=== PATIENT | male | born 1965 | race Caucasian/White ===

== ENCOUNTER → 2017-05-24 | Outpatient (CLI) | payer BC ==
[~2017-05-24] MED LIST: HYCUDL5 PO; NAPR1TAB9 PO
[2017-05-24 12:18] LABS: BASO % 0.8 %; BASO ABS # 0.06 K/uL (0-0.2); COMPLETE YES; EOS % 1.7 %; HEMATOCRIT 45.9 % (42-52); IG% 0.8 %; LYMPH % 21.3 %; LYMPH ABS # 1.53 K/uL (1.2-3.4); MEAN CELL VOLUME 97.5 fL (80-100); MEAN CORPUSCULAR HEMOGLOBIN 32.5 pg (25-34); MEAN CORPUSCULAR HGB CONC 33.3 g/dl (32-36); MEAN PLATELET VOLUME 9.4 fL (7.4-10.4); NEUT % 65.4 %; PLATELET COUNT 254 K/uL (130-400); RED BLOOD COUNT 4.71 M/uL (4.7-6.1); WHITE BLOOD COUNT 7.17 K/uL (4.8-10.8)
[2017-05-24 12:36] LABS: BLOOD UREA NITROGEN 15 mg/dl (7-18); CALCIUM 8.6 mg/dl (8.5-10.1); CARBON DIOXIDE 29 mmol/L (21-32); CHLORIDE 106 mmol/L (98-107); CHOLESTEROL 129 mg/dl (0-200); CREATININE 1.03 mg/dl (0.60-1.40); GLUCOSE 105 mg/dl (70-99); POTASSIUM 3.9 mmol/L (3.5-5.1); SODIUM 140 mmol/L (136-145); TRIGLYCERIDES 61 mg/dl (0-150); VERY LOW DENSITY LIPOPROT CALC 12 mg/dl
[2017-05-24 12:39] LABS: ESTIMATED AVERAGE GLUCOSE 134 mg/dl; HA1C FLAG Normal (Normal)
[2017-05-24 12:47] LABS: ALB/GLOB RATIO 1.3 (0.9-2); ALKALINE PHOSPHATASE 68 U/L (45-117); ALT/SGPT 38 U/L (12-78); AST/SGOT 20 U/L (15-37); HDL CHOLESTEROL 64 mg/dl; LDL CHOLESTEROL CALCULATED 53 mg/dl; THYROID STIMULATING HORMONE 0.525 uIu/ml (0.300-4.500)
[2017-05-24 12:50] LABS: CREATININE RANDOM URINE 45.9 mg/dl
[2017-05-24 13:01] LABS: RATIO 15.7 mcg/mg (0-30.0)
== END | disposition home or self-care (01) ==
LOC: C.LABBFT 07:34
PROVIDERS: ATTEND Physician Assistant Medical
DX: I10 Essential (primary) hypertension (principal); Z12.5 Encounter for screening for malignant neoplasm of prostate

== ENCOUNTER → 2017-08-22 | Outpatient (CLI) | payer BC ==
--- NOTE | 2017-08-22 07:51 | DIAGNOSTIC IMAGING REPORT ---
ABDOMEN FOR HERNIA CLINICAL HISTORY: Umbilical hernia. COMPARISON STUDY: No previous studies for comparison. FINDINGS: Note is made of a fat-containing umbilical hernia which is incompletely reducible. IMPRESSION: Incompletely reducible fat-containing umbilical hernia. Electronically signed by: Jaylon Peguero M.D. 08/22/2017 7:49 AM Dictated Date/Time: 08/22/2017 7:47 AM
== END | disposition home or self-care (01) ==
LOC: C.ULTR 07:30
PROVIDERS: ATTEND Physician Assistant Medical
DX: K42.9 Umbilical hernia without obstruction or gangrene (principal)

== ENCOUNTER → 2017-09-18 | Day surgery (SDC) | payer BC ==
[2017-09-11 08:08] VITALS: BMI 36.0
--- NOTE | 2017-09-11 08:38 | PAT Medication Instructions ---
Service Date Sep 11, 2017. Current Home Medication List Losartan Potassium (Cozaar), 50 MG PO QAM [Triamcinolone 1%], 1 DOSE TOP PRN Medication Instructions For Your Scheduled Surgery - Hold the following medications 24 hours prior to surgery: [Triamcinolone 1%], 1 DOSE TOP PRN - Hold the following medications the morning of surgery: Losartan Potassium (Cozaar), 50 MG PO QAM If you have any questions please call us at [phone] or [phone] or [phone]
--- NOTE | 2017-09-11 09:04 | DIAGNOSTIC IMAGING REPORT ---
CHEST 2 VIEWS ROUTINE CLINICAL HISTORY: 51 years-old Male presenting with preoperative examination. TECHNIQUE: PA and lateral views of the chest were obtained. COMPARISON: 03/23/2015. FINDINGS: Cardiomediastinal silhouette normal. Lungs and pleural spaces clear. Degenerative changes of the thoracic spine. Upper abdomen normal. IMPRESSION: 1. No acute cardiopulmonary disease. Electronically signed by: Korey Burton M.D. 09/11/2017 9:03 AM Dictated Date/Time: 09/11/2017 9:02 AM
[2017-09-11 11:20] LABS: BASO % 0.5 %; BASO ABS # 0.04 K/uL (0-0.2); EOS % 1.3 %; HEMATOCRIT 44.1 % (42-52); HEMOGLOBIN 14.9 g/dL (14.0-18.0); IG# 0.12 K/uL (0.00-0.02); LYMPH ABS # 1.56 K/uL (1.2-3.4); MEAN CELL VOLUME 96.1 fL (80-100); MEAN CORPUSCULAR HEMOGLOBIN 32.5 pg (25-34); MEAN CORPUSCULAR HGB CONC 33.8 g/dl (32-36); MEAN PLATELET VOLUME 8.8 fL (7.4-10.4); MONO % 7.9 %; MONO ABS # 0.59 K/uL (0.11-0.59); NEUT % 67.7 %; NEUT ABS # 5.02 K/uL (1.4-6.5); PLATELET COUNT 235 K/uL (130-400); RED CELL DISTRIBUTION WIDTH SD 49.3 fL (36.4-46.3); WHITE BLOOD COUNT 7.43 K/uL (4.8-10.8)
[2017-09-11 11:28] LABS: CALCIUM 8.8 mg/dl (8.5-10.1); CREATININE 0.91 mg/dl (0.60-1.40); POTASSIUM 4.4 mmol/L (3.5-5.1)
[~2017-09-18] VITALS: Ht 177.8 cm; Wt 115.9 kg
[~2017-09-18] MED LIST changes: +ATROPINE SULFATE 0.1 MG/ML 5ML SYR IV PRN; +BUPIVACAINE 0.5 % 5 MG/1 ML MPF 30ML VIAL ONE; +CEFAZOLIN 2000MG IV PUSH 15 ML IV SCH; +CLINDAMYCIN 600 MG/54 ML D5W IV SCH; +DEXAMETHASONE SOD INJ 4 MG/ML VIAL ONE; +EpHEDrine SULFATE INJ 50 MG/ML AMP IV PRN; +FENTANYL CITRATE INJ 50 MCG/1 ML 2 ML VIAL IV PRN; +FENTANYL CITRATE INJ 50 MCG/1 ML 2 ML VIAL ONE; +FLUMAZENIL 0.1 MG/1 ML 10 ML VIAL IV PRN; +GLYCOPYRROLATE INJ 0.2 MG/ML VIAL ONE; -HYCUDL5 PO; +LABETALOL HCL IV 5 MG/ML 20ML IV ONE; +LABETALOL HCL IV 5 MG/ML 20ML IV PRN; +LACTATED RINGER'S 1000ML 1,000 ML IV SCH; +LIDOCAINE HCL 2% 2 ML VIAL (20MG/ML) ONE; +LOSA50TA6 PO; +MEPERIDINE HCL 25 MG/ML CARP IV PRN; +MIDAZOLAM HCL 1 MG/ML 2ML VIAL ONE; +MoRPHine SULFATE 2 MG/ML CARP IV PRN; +NALOXONE HCL 0.4 MG/1 ML VIAL/CARP IV PRN; -NAPR1TAB9 PO; +NEOSTIGMINE METHYLSULFATE 5 MG/5 ML SYR ONE; +NURSING VERBAL MED ORDER ONE; +ONDANSETRON INJ 2 MG/ML 2 ML VIAL IV PRN; +ONDANSETRON INJ 2 MG/ML 2 ML VIAL ONE; +OXYC-57 PO; +OXYCODONE/ACETAMINOPHEN 5-325 TAB PO PRN; +PHENYLEPHRINE 100MCG/ML 5ML SYR IV PRN; +PROPOFOL IV EMULSION 10 MG/ML 20 ML VIAL IV ONE; +ROCURONIUM BROMIDE 10 MG/ML 5 ML VIAL IV ONE; +TRIAMCINOLONE 1% TOP
[2017-09-18 07:00] VITALS: BP 166/97; PULSE 56; TEMP 36.4; O2SAT 98; Ht 177.8 cm; Wt 115.9 kg
--- NOTE | 2017-09-18 07:04 | History & Physical Bridge Note ---
H&P Re-Evaluation Bridge Note: I have examined the patient, reviewed the History & Physical and in the interval since the performance of the History & Physical I have noted the following changes of clinical significance: No changes noted
--- NOTE | 2017-09-18 08:08 | Discharge Instructions ---
Discharge Instructions Date of Service Sep 18, 2017. Visit Reason for Visit: Umbilical Hernia Discharge Discharge Diagnosis / Problem: hernia repair Discharge Goals Goal(s): Decrease discomfort Activity Recommendations Activity Limitations: resume your previous activity Lifting Limitations: no more than 10 pounds Shower/Bathe: no limitations Driving or Machine Use: resume 3 days after discharge Anesthesia . Post Anesthesia Instructions: If you have had General Anesthesia or IV Sedation: * Do not drive today. * Resume driving when surgeon permits. * Do not make important decisions or sign legal documents today. * Call surgeon for: 1. Temperature elevations greater than 101 degrees F. 2. Uncontrollable pain. 3. Excessive bleeding. 4. Persistent nausea and vomiting. 5. Medication intolerance (nausea, vomiting or rash). * For nausea and vomiting use only clear liquids such as: tea, soda, bouillon until nausea subsides, then gradually increase diet as tolerated. * If you have any concerns or questions, call your surgeon's office. If physician is unavailable and it is an emergency, call 911 or go to the nearest emergency room. . Instructions / Follow-Up Instructions / Follow-Up Dr. Marquez in 1-2 weeks as planned, call [phone] if you have any questions or need to schedule an appt Diet Recommendations Recommended Home Diet: no limitations Pending Studies Studies pending at discharge: no Medical Emergencies . Who to Call and When: Medical Emergencies: If at any time you feel your situation is an emergency, please call 911 immediately. . Non-Emergent Contact Non-Emergency issues call your: Surgeon Call Non-Emergent contact if: you have a fever, temperature is above 101.5, your pain is not controlled, wound has increased redness, you have any medication questions . . "Provider Documentation" section prepared by Alejo Kate. .
--- NOTE | 2017-09-18 09:12 | [facility] Post Operative Brief Note ---
Immediate Operative Summary Operative Date Sep 18, 2017. Pre-Operative Diagnosis Umbilical Hernia Post-Operative Diagnosis Same as preop Procedure(s) Performed Open Umbilical Hernia Repair with Mesh Surgeon Dr. Marquez Dry Cell Assembly Machine Tender Surgeon(s) Alejo Kate PA-C Estimated Blood Loss 2 ml Findings Consistent with Post-Op Diagnosis 1.5 cm defect, small Cqur mesh placed Specimens None per Surgeon Drains None Anesthesia Type General Complication(s) none Disposition Accompanied Pt To Recover: no Disposition: Recovery Room / PACU
--- NOTE | 2017-09-18 09:16 | [facility] Operative Report ---
Operative Report Operative Date Sep 18, 2017. Pre-Operative Diagnosis Umbilical Hernia Post-Operative Diagnosis Umbilical hernia, reducible Procedure(s) Performed Umbilical hernia repair with mesh Surgeon Dr. Marquez Exercise Science Instructor Surgeon(s) Alejo Kate PA-C Estimated Blood Loss 2 ml Findings 1.5 cm defect, 4.3 cm Cqur mesh sewn into place with interrupted 0 Nurolon suture Specimens None per Surgeon Drains None Anesthesia GETA Complication(s) None Disposition Recovery Room / PACU Indications 51-year-old morbidly obese male with symptomatic umbilical hernia, desires repair. Plan for open umbilical hernia repair. The risks of the procedure were discussed, all questions were answered, and the patient agreed to proceed with surgery as planned. Description of Procedure The patient was properly identified, consented, and taken to the operating room where he was placed in the supine position. General endotracheal anesthesia was induced. SCDs and a safety belt were placed. Preoperative antibiotics were administered. The patient's abdomen was prepped and draped in the standard sterile fashion. Surgical timeout was performed and all parties were in agreement that this was the correct patient and procedure to be performed and we continued as planned. A curvilinear infraumbilical incision was made and deepened down to the fascia with blunt dissection. The umbilical stalk was circumferentially dissected with a Jenna, and divided below the level of the skin. A 1.5 cm fascial defect was encountered. The hernia was reduced. The fascia anteriorly and posteriorly was cleared of investing tissue for several centimeters. Hemostasis was achieved within the wound. Due to the patient's obesity, a 4.3 cm piece of Cqur mesh was sown into place with interrupted 0 Nurolon sutures. The wound was irrigated and hemostasis confirmed. The umbilicus was tacked down to the fascia with 3-0 Vicryl sutures. Local anesthetic in the form of 0.5% Marcaine was injected in the fascia and along the skin incision. The skin was closed with interrupted 3-0 Vicryl deep dermal sutures, followed by 4-0 Monocryl running subcuticular suture. Dermabond was placed over the wound. The patient was extubated in the operating room and taken to the PACU where he recovered without apparent incident. All sponge, instrument and needle counts were correct at the conclusion of the procedure. The patient tolerated the procedure well. The physician's export sales assistant was present and scrubbed for the entirety of the case. He was essential in positioning the patient, prepping and draping, retraction and exposure, repair of the hernia, closure of the incision, and placement of the dressings. I attest to the content of the Intraoperative Record and any orders documented therein. Any exceptions are noted below.
--- NOTE | 2017-09-18 10:03 | Anesthesiology Progress Note ---
Anesthesia Post Op Note Date & Time Sep 18, 2017 at 10:03 Vital Signs Pain Intensity: 2 Vital Signs Past 12 Hours Date Time Temp Pulse Resp B/P (MAP) Pulse Ox O2 Delivery O2 Flow Rate FiO2 09/18/17 09:50 135/87 09/18/17 09:49 57 26 09/18/17 09:49 58 26 100 09/18/17 09:48 137/91 09/18/17 09:45 57 27 09/18/17 09:45 55 27 144/104 100 09/18/17 09:40 56 22 09/18/17 09:40 56 22 150/108 100 09/18/17 09:35 60 12 161/103 100 09/18/17 09:35 60 12 09/18/17 09:30 67 18 09/18/17 09:30 67 18 186/102 100 09/18/17 09:30 36.0 67 14 186/102 98 Oxymask 10 09/18/17 07:00 36.4 56 20 166/97 (120) 98 Room Air Notes Mental Status: alert / awake / arousable, participated in evaluation Pt Amnestic to Procedure: Yes Nausea / Vomiting: adequately controlled Pain: adequately controlled Airway Patency, RR, SpO2: stable & adequate BP & HR: stable & adequate Hydration State: stable & adequate Anesthetic Complications: no major complications apparent
[2017-09-18 10:14] VITALS: BP 142/86; PULSE 52; TEMP 36.5; O2SAT 92
[2017-09-18 10:44] VITALS: BP 157/96; PULSE 60; TEMP 36.5; O2SAT 95
== END | disposition home or self-care (01) ==
LOC: C.OR 06:40
PROVIDERS: ATTEND Surgery
DX: K42.9 Umbilical hernia without obstruction or gangrene (principal); E66.01 Morbid (severe) obesity due to excess calories; J45.909 Unspecified asthma, uncomplicated; I10 Essential (primary) hypertension; Z79.899 Other long term (current) drug therapy; Z88.0 Allergy status to penicillin; Z88.8 Allergy status to other drugs, medicaments and biological substances; Z88.5 Allergy status to narcotic agent

== ENCOUNTER → 2017-10-02 | Outpatient (CLI) | payer BC ==
[~2017-10-02] MED LIST changes: -ATROPINE SULFATE 0.1 MG/ML 5ML SYR IV PRN; -BUPIVACAINE 0.5 % 5 MG/1 ML MPF 30ML VIAL ONE; -CEFAZOLIN 2000MG IV PUSH 15 ML IV SCH; -CLINDAMYCIN 600 MG/54 ML D5W IV SCH; -DEXAMETHASONE SOD INJ 4 MG/ML VIAL ONE; -EpHEDrine SULFATE INJ 50 MG/ML AMP IV PRN; -FENTANYL CITRATE INJ 50 MCG/1 ML 2 ML VIAL IV PRN; -FENTANYL CITRATE INJ 50 MCG/1 ML 2 ML VIAL ONE; -FLUMAZENIL 0.1 MG/1 ML 10 ML VIAL IV PRN; -GLYCOPYRROLATE INJ 0.2 MG/ML VIAL ONE; -LABETALOL HCL IV 5 MG/ML 20ML IV ONE; -LABETALOL HCL IV 5 MG/ML 20ML IV PRN; -LACTATED RINGER'S 1000ML 1,000 ML IV SCH; -LIDOCAINE HCL 2% 2 ML VIAL (20MG/ML) ONE; -MEPERIDINE HCL 25 MG/ML CARP IV PRN; -MIDAZOLAM HCL 1 MG/ML 2ML VIAL ONE; -MoRPHine SULFATE 2 MG/ML CARP IV PRN; -NALOXONE HCL 0.4 MG/1 ML VIAL/CARP IV PRN; -NEOSTIGMINE METHYLSULFATE 5 MG/5 ML SYR ONE; -NURSING VERBAL MED ORDER ONE; -ONDANSETRON INJ 2 MG/ML 2 ML VIAL IV PRN; -ONDANSETRON INJ 2 MG/ML 2 ML VIAL ONE; -OXYCODONE/ACETAMINOPHEN 5-325 TAB PO PRN; -PHENYLEPHRINE 100MCG/ML 5ML SYR IV PRN; -PROPOFOL IV EMULSION 10 MG/ML 20 ML VIAL IV ONE; -ROCURONIUM BROMIDE 10 MG/ML 5 ML VIAL IV ONE
[2017-10-02 12:29] LABS: BLOOD UREA NITROGEN 17 mg/dl (7-18); CARBON DIOXIDE 29 mmol/L (21-32); CREATININE 1.08 mg/dl (0.60-1.40); GLUCOSE 99 mg/dl (70-99); POTASSIUM 4.1 mmol/L (3.5-5.1); SODIUM 139 mmol/L (136-145)
== END | disposition home or self-care (01) ==
LOC: C.LABBFT 07:20
PROVIDERS: ATTEND Physician Assistant Medical
DX: I10 Essential (primary) hypertension (principal)

== ENCOUNTER 2018-01-27 10:36 | Emergency (ER) | payer BC ==
[~2018-01-27] VITALS: Ht 177.8 cm; Wt 111.9 kg
[2018-01-27 10:44] VITALS: TEMP 36.5; Ht 177.8 cm; Wt 111.9 kg
[2018-01-27] MEDS ORDERED: KETOROLAC TROMETHAMINE 30 MG/ML VIAL IV STA (11:10)
[2018-01-27] MEDS ORDERED: ACETAMINOPHEN 325 MG TAB PO STA (11:10)
--- NOTE | 2018-01-27 11:17 | EMERGENCY ROOM VISIT NOTE ---
History Report prepared by Ashley: Chance Akers Under the Supervision of: Dr. Ramez Thao M.D. First contact with patient: 10:59 Chief Complaint: RIB PAIN Stated Complaint: RIB AREA HARD TO TAKE DEEP BREATH History of Present Illness The patient is a 52 year old male who presents to the Emergency Room with complaints of left-sided pain with breathing in the area of his ribs worsening since today. He states that he moved his left arm today and noticed something shifting, and since has been experiencing pain only when he breathes. He notes that he has been taking Tylenol for pain. The patient notes that he was lying on the floor and moved his left arm 4 months ago and also felt something shift. 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 He notes a history of a superficial clot in his leg that did not require treatment. He denies nausea, vomiting, sweating, or coughing. He denies smoking. Source of History: patient Onset: today Position: other (area of the left ribs) Timing: worsening Modifying Factors (Worsening): breathing Associated Symptoms: No diaphoresis, No cough, No nausea, No vomiting Review of Systems See HPI for pertinent positives and negatives. A total of ten systems were reviewed and were otherwise negative. Past Medical & Surgical Medical Problems: (1) Asthma (2) Hypertension (3) Varicose vein Family History Hypertension Social History Smoking Status: Never Smoker Smokeless Tobacco Use: Yes Alcohol Use: occasionally Drug Use: none Marital Status: single Housing Status: lives alone Occupation Status: employed Current/Historical Medications Scheduled Hctz/Losartan (Hyzaar 12.5MG/50MG), 1 TAB PO DAILY Allergies Coded Allergies: Homatropine (Verified Allergy, Unknown, SYRUP-MENTAL CONFUSION, 01/27/18) Hydrocodone (Verified Allergy, Unknown, SYRUP-MENTAL CONFUSION, 01/27/18) Penicillins (Verified Allergy, Unknown, as a child, 01/27/18) Physical Exam Vital Signs Date Time Temp Pulse Resp B/P (MAP) Pulse Ox O2 Delivery O2 Flow Rate FiO2 01/27/18 12:05 72 01/27/18 12:05 67 18 132/72 95 Room Air 01/27/18 11:32 96 Room Air 01/27/18 10:44 36.5 92 18 132/83 95 Room Air Physical Exam GENERAL: Awake, alert, obese-appearing, NAD. Wearing glasses. HENT: Normocephalic, atraumatic. EYES: Normal conjunctiva. Sclera non-icteric. PERRL. No anisocoria. NECK: Supple. No nuchal rigidity. FROM. RESPIRATORY: CTAB, no rhonchi, wheezing, crackles CARDIAC: RRR, no MRG ABDOMEN: Soft, NTND, BS+ MSK: Reproducible left anterior chest wall pain and TTP, no overlying changes, no crepitus. 1+ b/l lower extremity edema, no asymmetry. Wears compression stockings. NEURO: GCS 15, CN 2-12 intact, moves all 4s on command SKIN: No rashes noted over left chest. No jaundice noted. Medical Decision & Procedures ER Provider Diagnostic Interpretation: Radiology results as stated below per my review and radiologist interpretation: CHEST 2 VIEWS ROUTINE HISTORY: 52 years-old Male L sided anterior CP acute left-sided atypical chest pain COMPARISON: Chest radiograph 09/11/2017 TECHNIQUE: PA and lateral views of the chest FINDINGS: Cardiac silhouette is upper limits of normal in size. No pneumothorax, pleural effusion, focal airspace consolidation or overt pulmonary edema. Bones of the chest appear grossly intact. Spondylitic spurring of the spine. Mild tortuosity about the descending thoracic aorta. IMPRESSION: No acute process. The above report was generated using voice recognition software. It may contain grammatical, syntax or spelling errors. Electronically signed by: Portillo oCnner M.D. 01/27/2018 12:02 PM Laboratory Results 01/27/18 11:30 Red Blood Count 4.72, Mean Corpuscular Volume 97.2, Mean Corpuscular Hemoglobin 32.2, Mean Corpuscular Hemoglobin Concent 33.1, Mean Platelet Volume 8.7, Neutrophils (%) (Auto) 76.1, Lymphocytes (%) (Auto) 13.4, Monocytes (%) (Auto) 7.8, Eosinophils (%) (Auto) 1.1, Basophils (%) (Auto) 0.4, Neutrophils # (Auto) 6.86, Lymphocytes # (Auto) 1.21, Monocytes # (Auto) 0.70, Eosinophils # (Auto) 0.10, Basophils # (Auto) 0.04 8/20/18 11:30 Test 01/27/18 11:30 White Blood Count 9.02 K/uL (4.8-10.8) Red Blood Count 4.72 M/uL (4.7-6.1) Hemoglobin 15.2 g/dL (14.0-18.0) Hematocrit 45.9 % (42-52) Mean Corpuscular Volume 97.2 fL (80-100) Mean Corpuscular Hemoglobin 32.2 pg (25-34) Mean Corpuscular Hemoglobin Concent 33.1 g/dl (32-36) Platelet Count 251 K/uL (130-400) Mean Platelet Volume 8.7 fL (7.4-10.4) Neutrophils (%) (Auto) 76.1 % Lymphocytes (%) (Auto) 13.4 % Monocytes (%) (Auto) 7.8 % Eosinophils (%) (Auto) 1.1 % Basophils (%) (Auto) 0.4 % Neutrophils # (Auto) 6.86 K/uL (1.4-6.5) Lymphocytes # (Auto) 1.21 K/uL (1.2-3.4) Monocytes # (Auto) 0.70 K/uL (0.11-0.59) Eosinophils # (Auto) 0.10 K/uL (0-0.5) Basophils # (Auto) 0.04 K/uL (0-0.2) RDW Standard Deviation 47.4 fL (36.4-46.3) RDW Coefficient of Variation 13.3 % (11.5-14.5) Immature Granulocyte % (Auto) 1.2 % Immature Granulocyte # (Auto) 0.11 K/uL (0.00-0.02) Anion Gap 9.0 mmol/L (3-11) Est Creatinine Clear Calc Drug Dose 115.1 ml/min Estimated GFR () 108.2 Estimated GFR (Non- 93.4 BUN/Creatinine Ratio 18.0 (10-20) Calcium Level 8.7 mg/dl (8.5-10.1) Total Bilirubin 0.4 mg/dl (0.2-1) Direct Bilirubin 0.1 mg/dl (0-0.2) Aspartate Amino Transf (AST/SGOT) 25 U/L (15-37) Alanine Aminotransferase (ALT/SGPT) 44 U/L (12-78) Alkaline Phosphatase 89 U/L (45-117) Troponin I < 0.015 ng/ml (0-0.045) Total Protein 6.9 gm/dl (6.4-8.2) Albumin 3.7 gm/dl (3.4-5.0) Lipase 163 U/L (73-393) Laboratory results reviewed by me Medications Administered Medications (Trade) Dose Ordered Sig/Jalen Route Start Time Stop Time Status Last Admin Dose Admin Ketorolac Tromethamine (Toradol Inj) 30 mg NOW STAT IV 01/27/18 11:10 01/27/18 11:11 DC 01/27/18 11:36 30 MG Acetaminophen (Tylenol Tab) 650 mg NOW STAT PO 01/27/18 11:10 01/27/18 11:11 DC 01/27/18 11:36 650 MG ECG Per My Interpretation Indication: chest pain Rate (beats per minute): 77 Rhythm: normal sinus Findings: left axis deviation, other (Normal intervals. No STS changes or TWI.) ED Course 1103: The patient was evaluated in room C4. A complete history and physical exam was performed. 1226: I reevaluated the patient, who states he is feeling a little better. Discussed results and discharge instructions: He verbalized understanding and agreement. The patient is ready for discharge. Medical Decision Nursing notes reviewed. Ancillary studies and prior records reviewed. The patient is a 52 year old male who presents to the Emergency Room with complaints of worsening left-sided pain with breathing in the area of his ribs beginning today. Differential diagnosis: Etiologies such as costochondritis, MSK pain, cardiac ischemia, aortic dissection, pulmonary embolism, pneumonia, pneumothorax, musculoskeletal, infections, pericarditis, myocarditis, esophageal rupture, gastrointestinal, as well as others were entertained. Patient was seen and evaluated the bedside. The patient was complaining some left-sided anterior reproducible chest wall pain. Patient does describe it is somewhat pleuritic. The patient does report having similar symptoms 4 months prior after he had changed out to switch controller. 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 The patient is right-handed. The patient denies any other acute trauma to the area. The patient does have some reproducible chest wall tenderness no evidence of any overlying erythema crepitus or rash. The patient is not tachypneic nor tachycardic. The patient is also not hypoxic. Patient did have blood work completed along with an EKG and troponin. Patient's EKG does not show acute arrhythmia. Troponin is not elevated. Patient's history and physical exam along with nonischemic EKG and negative troponin less likely ACS. HEART score of 2, less likely ACS. The patient does feel improved after treatment. Patient states that he did have a history of superficial venous thrombosis which did not require anticoagulant medication this was found on a prior MRI of the lower extremities. The patient has negative Homans sign and no asymmetry of the bilateral lower extremities less likely DVT. The patient has a well's PE criteria of 0. Patient was given strict follow-up, discharge, and return precautions. All questions were answered. Patient was deemed suitable for outpatient follow-up at this time. Patient agreed with the plan of care and was safely discharged home. Medication Reconcilliation Current Medication List: was personally reviewed by me Blood Pressure Screening Patient's blood pressure: Normal blood pressure Blood pressure disposition: Did not require urgent referral Impression Primary Impression: Costochondritis, acute Scribe Attestation The scribe's documentation has been prepared under my direction and personally reviewed by me in its entirety. I confirm that the note above accurately reflects all work, treatment, procedures, and medical decision making performed by me. Departure Information Dispostion Home / Self-Care Referrals Melody Wilson P.A. (PCP) Forms HOME CARE DOCUMENTATION FORM, IMPORTANT VISIT INFORMATION, WORK / SCHOOL INSTRUCTIONS Patient Instructions My [facility] Additional Instructions Please return to the emergency department if you have worsening or recurrent symptoms not amenable to at-home treatment. Please call for a follow-up appointment with her primary care physician. Please take your medications as prescribed. If you have other concerns and/or complaints please feel free to also call your primary care physician's office or return the ED for further evaluation, management, and treatment. You may take 400 mg Ibuprofen every 6 hours as needed for pain/fever with food unless told by your physician not to take NSAIDs. You may take tylenol 650 mg every 6 hours as needed for pain/fever unless told by your physician to not take it or have liver problems. You may take motrin and tylenol separately or at the same time. You may apply moist heat and/or ice to the area. You may consider topicals such as BenGay, Biofreeze, or icy hot. If you do have persistent symptoms you may consider obtaining a referral for physical therapy. Take your medications as prescribed. You have been examined and treated today on an emergency basis only. This is not a substitute for, or an effort to provide, complete comprehensive medical care. It is impossible to recognize and treat all injuries or illnesses in a single emergency department visit. It is therefore important that you follow up closely with [facility], your PCP, and/or your specialist(s). Call as soon as possible for an appointment. Thank you for your time and consideration. I look forward to speaking with you again soon. Please don't hesitate to call us if you have any questions.
[2018-01-27 11:32] VITALS: O2SAT 96
[2018-01-27 11:40] LABS: BASO % 0.4 %; BASO ABS # 0.04 K/uL (0-0.2); EOS % 1.1 %; HEMATOCRIT 45.9 % (42-52); HEMOGLOBIN 15.2 g/dL (14.0-18.0); IG# 0.11 K/uL (0.00-0.02); LYMPH % 13.4 %; LYMPH ABS # 1.21 K/uL (1.2-3.4); MEAN CELL VOLUME 97.2 fL (80-100); MEAN CORPUSCULAR HEMOGLOBIN 32.2 pg (25-34); MEAN CORPUSCULAR HGB CONC 33.1 g/dl (32-36); MEAN PLATELET VOLUME 8.7 fL (7.4-10.4); MONO % 7.8 %; NEUT % 76.1 %; NEUT ABS # 6.86 K/uL (1.4-6.5); PLATELET COUNT 251 K/uL (130-400); RED CELL DISTRIBUTION WIDTH CV 13.3 % (11.5-14.5); RED CELL DISTRIBUTION WIDTH SD 47.4 fL (36.4-46.3); WHITE BLOOD COUNT 9.02 K/uL (4.8-10.8)
[2018-01-27 12:01] LABS: ALBUMIN 3.7 gm/dl (3.4-5.0); ALKALINE PHOSPHATASE 89 U/L (45-117); ALT/SGPT 44 U/L (12-78); AST/SGOT 25 U/L (15-37); BLOOD UREA NITROGEN 17 mg/dl (7-18); CALCIUM 8.7 mg/dl (8.5-10.1); CARBON DIOXIDE 26 mmol/L (21-32); CREATININE 0.93 mg/dl (0.60-1.40); GLUCOSE 106 mg/dl (70-99); LIPASE 163 U/L (73-393); SODIUM 143 mmol/L (136-145); TOTAL PROTEIN 6.9 gm/dl (6.4-8.2)
--- NOTE | 2018-01-27 12:04 | DIAGNOSTIC IMAGING REPORT ---
CHEST 2 VIEWS ROUTINE HISTORY: 52 years-old Male L sided anterior CP acute left-sided atypical chest pain COMPARISON: Chest radiograph 09/11/2017 TECHNIQUE: PA and lateral views of the chest FINDINGS: Cardiac silhouette is upper limits of normal in size. No pneumothorax, pleural effusion, focal airspace consolidation or overt pulmonary edema. Bones of the chest appear grossly intact. Spondylitic spurring of the spine. Mild tortuosity about the descending thoracic aorta. IMPRESSION: No acute process. The above report was generated using voice recognition software. It may contain grammatical, syntax or spelling errors. Electronically signed by: Portillo Conner M.D. 01/27/2018 12:02 PM Dictated Date/Time: 01/27/2018 12:00 PM
[2018-01-27 12:05] VITALS: BP 132/72; PULSE 67; O2SAT 95
[2018-01-27] MEDS ORDERED: HYZ/50125 PO (12:06)
== END 2018-01-27 12:30 | disposition home or self-care (01) ==
LOC: C.EDB 10:37 → C.EDC 12:30
DX: M94.0 Chondrocostal junction syndrome [Tietze] (principal); J45.909 Unspecified asthma, uncomplicated; I10 Essential (primary) hypertension; Z88.8 Allergy status to other drugs, medicaments and biological substances; Z88.0 Allergy status to penicillin

== ENCOUNTER 2021-01-03 08:50 | Inpatient (IN) ==
[2021-01-03] MEDS ORDERED: KETOROLAC TROMETHAMINE 15 MG/ML VIAL IV ONE (08:59)
--- NOTE | 2021-01-03 09:02 | Emergency Department Note ---
Impression & Plan Chest pain, Pulmonary embolism, Elevated troponin ED Provider Note NAME: LUCY CASTRO AGE: 55 SEX: M : 1965 ARRIVES VIA: Ambulance INFORMANT: Patient ED PROVIDER(S): Chris Small DO CHIEF COMPLAINT: chest pain HPI: Patient is a 55-year-old male with a past medical history of hypertension and diabetes as well as obesity that presents the ER for exertional chest pain and shortness of breath which has been present for the past 3 days. He notes it improves with rest. He has no pain right now. He went to the wound care clinic and he was having chest pain and was diaphoretic per report. He was given aspirin. His pain has resolved. Denies any belly pain nausea vomiting or diarrhea. No dysuria urgency or frequency. He has been taking his NOAC and has not missed any doses until he stopped taking it about 3 weeks ago per instructions from his physician. He notes he had a small clot in his lower leg. ROS: See above HPI for pertinent positives & negatives. A total of 10 systems reviewed and were otherwise negative. PAST MEDICAL HISTORY:See Below PAST SURGICAL HISTORY:See Below FAMILY HISTORY:See Below SOCIAL HISTORY:See Below HOME MEDICATIONS:See Below ALLERGIES:See Below VITALS:See Below PHYSICAL EXAMINATION: GENERAL: Sitting up in bed, alert, well appearing, well nourished, no distress, non-toxic EYE EXAM: normal conjunctiva. OROPHARYNX: mucous membranes are moist NECK: supple, no nuchal rigidity, no adenopathy, non-tender CHEST: No reproducible anterior chest wall pain LUNGS: Clear to auscultation. Normal chest wall mechanics HEART: no murmurs, S1 normal and S2 normal ABDOMEN: abdomen soft, non-tender, normo-active bowel sounds, no masses, no rebound or guarding. UPPER EXTREMITIES: upper extremities are grossly normal. LOWER EXTREMITIES: No pitting edema. NEURO EXAM: Normal sensorium, cranial nerves II-XII grossly intact, normal speech, no gross weakness of arms, no gross weakness of legs. MEDICAL DECISION MAKING: Patient is a 55-year-old gentleman the presents the ER for chest pain which is exertional in nature associated with shortness of breath. He was sent in from the wound care clinic. IV was established blood work was obtained. Labs show no significant leukocytosis or anemia. BMP was unremarkable. LFTs bilirubin was normal. Troponin was elevated 0.136. Lipase was normal. Covid was negative. Chest x-ray was unremarkable. No STEMI on EKG. No acute ischemic changes. Follow the result of the elevated troponin to discussed with Nestor Ramachandran from cardiology. I did have concern that this gentleman may have a PE and he is a fairly poor historian. After reviewing the case recommended CT angio we both agreed the patient should be placed on heparin. He was given a bolus of heparin and placed on heparin drip after discussion with the patient at bedside as he had no bleeding risk factors. CT angio did show PEs. There was no obvious right heart strain on CT angio. This was discussed again with Dr. Herbert. Recommended discussion with the hospitalist for further evaluation I discussed with Dr. Josemanuel Gomez for further work-up. Dr. Herbert will likely obtain an echo per discussion. Triage Nursing notes reviewed. Limited review of prior medical records performed Vital Signs: reviewed and remarkable for no significant abnormalities Differential diagnosis: Differential diagnoses includes but is not limited to acute coronary syndrome, myocardial infarction, pericarditis, pulmonary embolus, aortic dissection, pneumonia, pneumothorax, musculoskeletal, shingles, esophageal. ER treatment provided: See below Diagnostics interpreted by me: ECG: Sinus rhythm rate of 93 Left axis No PVCs QTC 415 Cardiac Monitoring: An order was placed for continuous cardiac monitoring. The monitor shows a rate of 92 with sinus rhythm. Laboratory studies: As stated above and show below. 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 This includes bedside care, interpretation of diagnostic studies, and testing, discussion with consultants, patient, and family members, and other required patient management activities. This 42 minutes is in excess of all separately billable procedures. 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 Edema of both lower extremities History of blood clots SUPERFICIAL CLOT IN LEFT LEG (~2015) History of fractured rib Hypertension Thrombophlebitis of leg, superficial Varicose vein Venous stasis ulcer Surgical History H/O vein stripping History of herniorrhaphy UMBILICAL HERNIA REPAIR History of tonsillectomy Hx of removal of cyst FROM BACK Family History Other Family history non-contributory Social History Smoking Status: Never smoker Second Hand Exposure: No; Do You Dip or Chew Tobacco: No; Hx Alcohol Use: No Hx Substance Use: No Preferred Language: Indonesian Communication Ability: Effective Elevated Motorman Required: No Beliefs That Will Affect Care: None Current Living Situation: Spouse Other Information That Helps Us Care for You: No Feels Safe at Home: Yes Safety Concerns: Feels Safe At This Time Assistive Devices: Glasses Allergies Allergies Allergy/AdvReac Type Severity Reaction Status Date / Time homatropine Allergy Intermediate SYRUP-MENTAL Verified 01/03/21 10:37 CONFUSION hydrocodone Allergy Intermediate SYRUP-MENTAL Verified 01/03/21 10:37 CONFUSION Penicillins Allergy Unknown as a child Verified 01/03/21 10:37 Home Meds Home Medications Medication Instructions Recorded Confirmed albuterol sulfate 90 mcg/actuation 2 puffs INH 6XD PRN 01/03/21 01/03/21 aerosol inhaler (Ventolin HFA) furosemide 20 mg tablet (Lasix) 20 mg PO QAM 01/03/21 01/03/21 losartan 100 mg tablet (Cozaar) 100 mg PO QAM 01/03/21 01/03/21 metoprolol succinate 25 mg 25 mg PO QAM 01/03/21 01/03/21 tablet,extended release 24 hr (Toprol XL) sulfamethoxazole 800 1 tab PO BID 01/03/21 01/03/21 mg-trimethoprim 160 mg tablet (Bactrim DS) Previous Rx's Medication Instructions Recorded metformin 500 mg tablet 500 mg PO BID #60 tab 10/03/20 Results & Data (ED) Vital Signs Vital Signs - 24 hr 01/03/21 08:57 01/03/21 09:00 01/03/21 09:30 Temperature 36.5 C Temperature Source Oral Pulse Rate 98 H 102 H 91 H Pulse Rate [Finger] Pulse Rate from SpO2 Sensor 91 H Respiratory Rate 24 27 H 22 Respiratory Effort / Characteristics Non-Labored Spontaneous Respiratory Depth Normal Respiratory Pattern Blood Pressure 124/88 114/79 105/74 Blood Pressure [Right Arm] Blood Pressure Mean 100 90 84 Blood Pressure Mean [Right Arm] Blood Pressure Position Sitting Pulse Oximetry 95 95 Oxygen Delivery Method Room Air Sepsis Recent Fever Within 48 Hours No Sepsis New/Unexplained Change in Mental Status N/A Sepsis Action Taken by Nursing No Action Required 01/03/21 10:00 01/03/21 10:31 01/03/21 11:03 Temperature Temperature Source Pulse Rate 87 119 H 80 Pulse Rate [Finger] Pulse Rate from SpO2 Sensor 87 78 Respiratory Rate 23 15 21 Respiratory Effort / Characteristics Respiratory Depth Respiratory Pattern Blood Pressure 104/74 115/77 Blood Pressure [Right Arm] Blood Pressure Mean 84 89 Blood Pressure Mean [Right Arm] Blood Pressure Position Pulse Oximetry 95 95 Oxygen Delivery Method Sepsis Recent Fever Within 48 Hours Sepsis New/Unexplained Change in Mental Status Sepsis Action Taken by Nursing 01/03/21 11:30 01/03/21 12:00 01/03/21 13:28 Temperature Temperature Source Pulse Rate 77 78 Pulse Rate [Finger] 77 Pulse Rate from SpO2 Sensor 77 78 Respiratory Rate 19 19 20 Respiratory Effort / Characteristics Non-Labored Spontaneous Respiratory Depth Normal Respiratory Pattern Blood Pressure 112/78 114/93 Blood Pressure [Right Arm] 117/77 Blood Pressure Mean 89 100 Blood Pressure Mean [Right Arm] 90 Blood Pressure Position Pulse Oximetry 94 95 97 Oxygen Delivery Method Room Air Sepsis Recent Fever Within 48 Hours Sepsis New/Unexplained Change in Mental Status Sepsis Action Taken by Nursing 01/03/21 13:32 Temperature Temperature Source Pulse Rate Pulse Rate [Finger] 74 Pulse Rate from SpO2 Sensor Respiratory Rate 16 Respiratory Effort / Characteristics Non-Labored Respiratory Depth Normal Respiratory Pattern Regular Blood Pressure Blood Pressure [Right Arm] 120/81 Blood Pressure Mean Blood Pressure Mean [Right Arm] 94 Blood Pressure Position Pulse Oximetry 96 Oxygen Delivery Method Room Air Sepsis Recent Fever Within 48 Hours Sepsis New/Unexplained Change in Mental Status Sepsis Action Taken by Nursing Laboratory Data Result diagrams: 01/03/21 Unknown 01/03/21 Unknown Lab Results 01/03/21 01/03/21 01/03/21 Range/Units 10:05 10:05 Unknown WBC 10.21 (4.8-10.8) K/uL RBC 4.64 L (4.7-6.1) M/uL Hgb 14.8 (14.0-18.0) g/dL Hct 44.7 (42-52) % MCV 96.3 (80-100) fL MCH 31.9 (25-34) pg MCHC 33.1 (32-36) g/dL RDW Std Deviation 51.2 H (36.4-46.3) fL RDW Coeff of Beth 14.5 (11.5-14.5) % Plt Count 223 (130-400) K/uL MPV 8.9 (7.4-10.4) fL Immature Gran % (Auto) 2.6 % Neut % (Auto) 78.5 % Lymph % (Auto) 10.1 % Garrett % (Auto) 5.3 % Eos % (Auto) 3.2 % Baso % (Auto) 0.3 % Neut # (Auto) 8.01 H (1.4-6.5) K/uL Lymph # (Auto) 1.03 L (1.2-3.4) K/uL Garrett # (Auto) 0.54 (0.11-0.59) K/uL Eos # (Auto) 0.33 (0-0.5) K/uL Baso # (Auto) 0.03 (0-0.2) K/uL Immature Gran # (Auto) 0.27 H (0.00-0.02) K/uL APTT (21.0-31.0) Seconds PTT Ratio Sodium (136-145) mmol/L Potassium (3.5-5.1) mmol/L Chloride (98-107) mmol/L Carbon Dioxide (21-32) mmol/L Anion Gap (3-11) BUN (7-18) mg/dl Creatinine (0.6-1.4) mg/dl Est Cr Clr Drug Dosing Est GFR ( Amer) ml/min Est GFR (Non-Af Amer) ml/min BUN/Creatinine Ratio (10-20) Glucose (70-99) mg/dl Calcium (8.5-10.1) mg/dl Total Bilirubin (0.2-1) mg/dl AST (15-37) U/L ALT (12-78) U/L Alkaline Phosphatase (45-117) U/L Troponin I (0-0.045) ng/ml Total Protein (6.4-8.2) gm/dl Albumin (3.4-5.0) gm/dl Globulin (2.5-4.0) gm/dl Albumin/Globulin Ratio (0.9-2) Lipase (73-393) U/L COVID-19 Eval Order Covid19 at [facility] SARS-CoV-2 (PCR) NEGATIVE (Negative) 01/03/21 01/03/21 Range/Units Unknown Unknown WBC (4.8-10.8) K/uL RBC (4.7-6.1) M/uL Hgb (14.0-18.0) g/dL Hct (42-52) % MCV (80-100) fL MCH (25-34) pg MCHC (32-36) g/dL RDW Std Deviation (36.4-46.3) fL RDW Coeff of Beth (11.5-14.5) % Plt Count (130-400) K/uL MPV (7.4-10.4) fL Immature Gran % (Auto) % Neut % (Auto) % Lymph % (Auto) % Garrett % (Auto) % Eos % (Auto) % Baso % (Auto) % Neut # (Auto) (1.4-6.5) K/uL Lymph # (Auto) (1.2-3.4) K/uL Garrett # (Auto) (0.11-0.59) K/uL Eos # (Auto) (0-0.5) K/uL Baso # (Auto) (0-0.2) K/uL Immature Gran # (Auto) (0.00-0.02) K/uL APTT 22.8 (21.0-31.0) Seconds PTT Ratio 0.9 Sodium 137 (136-145) mmol/L Potassium 4.2 (3.5-5.1) mmol/L Chloride 106 (98-107) mmol/L Carbon Dioxide 24 (21-32) mmol/L Anion Gap 7.0 (3-11) BUN 15 (7-18) mg/dl Creatinine 1.10 (0.6-1.4) mg/dl Est Cr Clr Drug Dosing Not Reportable Est GFR ( Amer) 86.5 ml/min Est GFR (Non-Af Amer) 74.6 ml/min BUN/Creatinine Ratio 13.5 (10-20) Glucose 149 H (70-99) mg/dl Calcium 8.1 L (8.5-10.1) mg/dl Total Bilirubin 0.4 (0.2-1) mg/dl AST 18 (15-37) U/L ALT 55 (12-78) U/L Alkaline Phosphatase 80 (45-117) U/L Troponin I 0.136 H* (0-0.045) ng/ml Total Protein 6.7 (6.4-8.2) gm/dl Albumin 3.1 L (3.4-5.0) gm/dl Globulin 3.6 (2.5-4.0) gm/dl Albumin/Globulin Ratio 0.9 (0.9-2) Lipase 192 (73-393) U/L COVID-19 Eval Order SARS-CoV-2 (PCR) (Negative) Administered Medications Heparin Sodium/Dextrose (Heparin Sodium/Dextrose) 25,000 units in 500 mls @ 20 mls/hr IV .Q24H CHRISTINE; Protocol Stop: 02/02/21 10:59 Last Admin: 01/03/21 11:26 Dose: 1,000 units/hr, 20 mls/hr Documented by: [id number] Cosigned by: [id number] Discontinued Medications Aspirin (Aspirin 81 Mg Chew) 324 mg PO NOW STA Stop: 01/03/21 13:08 Last Admin: 01/03/21 13:29 Dose: 324 mg Documented by: [id number] Heparin Sodium (Porcine) (Heparin Sod (Porcine) 1000 Unit/Ml) 1 units IV NOW ONE Stop: 01/03/21 11:01 Last Admin: 01/03/21 11:26 Dose: 4,000 units Documented by: [id number] Cosigned by: [id number] Heparin Sodium/Dextrose (Heparin Iv Adult Wt-Based Low-Dose With Bolus Protocol) 1 ea N/A NOW STA; Protocol Stop: 01/03/21 10:46 Last Admin: 01/03/21 11:51 Dose: Not Given Documented by: [id number] Ioversol (Optiray 320 125ml) 120 ml IV ONCE ONE Stop: 01/03/21 11:00 Last Admin: 01/03/21 11:01 Dose: 120 ml Documented by: [id number] Ketorolac Tromethamine (Ketorolac Tromethamine 15 Mg/Ml Vial) 15 mg IV NOW ONE Stop: 01/03/21 09:00 Last Admin: 01/03/21 09:10 Dose: 15 mg Documented by: [id number] Imaging Data Radiologist's Impression: Chest X-Ray 01/03/21 09:00 XR chest 1V portable HISTORY: 55 years-old Male Chest Pain acute atypical chest pain COMPARISON: Chest radiograph 07/14/2020, chest CT 07/27/2018, chest radiograph 01/27/2018. TECHNIQUE: Portable AP view of the chest FINDINGS: Cardiac silhouette is enlarged. Nodular opacity of the right infrahilar distribution is redemonstrated which appears to correlate with pulmonary vasculature on comparison studies. No pneumothorax, pleural effusion, airspace consolidation or overt pulmonary edema. Degenerative changes of the shoulders and spine. IMPRESSION: Cardiomegaly without acute process. ACT 112: Negative or not required by law. The above report was generated using voice recognition software. It may contain grammatical, syntax or spelling errors. Electronically signed by: Armando Conner M.D. 01/03/2021 9:14 AM Chest CTA 01/03/21 10:45 CT ANGIOGRAM OF THE CHEST CLINICAL HISTORY: PE COMPARISON STUDY: July 27, 2018 TECHNIQUE: Following the IV administration of 120 mL of Optiray, CT angiogram of the thorax was performed from the thoracic inlet to the lung bases utilizing the pulmonary embolus protocol. Images are reviewed in the axial, sagittal, and coronal planes. IV contrast was administered without complication. MIP imaging was performed. A dose lowering technique was utilized adhering to the principles of ALARA. CT DOSE: 703.68 mGy.cm FINDINGS: There is adequate opacification within main pulmonary artery. Acute pulmonary emboli are seen within left upper lobe pulmonary artery branch. Main pulmonary artery is within upper limits of normal. No evidence of right heart strain seen. Mild four-chamber cardiomegaly is seen with trace pericardial effusion. No significant coronary calcification demonstrated. There is no axillary, supra clavicle or internal mammary lymphadenopathy seen. Few nonenlarged mediastinal and subcarinal lymph nodes are seen . There are few slightly prominent right hilar pulmonary nodules measuring up to 1.3 cm in short axis (4/168) There was no evidence of thoracic aortic dilatation. Tracheobronchial tree is patent. This study is acquired during partial ex piratory phase is slightly limits due to motion artifact. There is mild atelectasis and scarring at dependent portions of bilateral lower lobes. Evaluation of pulmonary parenchyma is limited due to severe motion artifact. Trace pleural effusion is seen on the right. Limited evaluation of upper abdominal viscera shows hepatic steatosis and nodularity of the right adrenal gland and no acute intra-abdominal process. Osseous structures: Multilevel degenerative changes of the spine. IMPRESSION: 1. Study is positive for pulmonary embolus within right upper lobe pulmonary artery branches. No evidence of right heart strain is seen. Findings will be report to emergency Department. 2. Cardiomegaly. Trace pericardial effusion. 3. Hepatic steatosis. 4. Trace right pleural effusion with atelectasis at dependent portions of bilateral lower lobes. 5. Limited exam due to respiratory motion artifact. 6. Additional findings as above. ACT 112: Negative or not required by law. The above report was generated using voice recognition software. It may contain grammatical, syntax or spelling errors. Electronically signed by: Angeline Raza DO 01/03/2021 11:22 AM Discharge Plan Visit Data Chief Complaint: Chest Pain Stated Complaint: CHEST PAIN ED Provider: Chris Small Discharge Problem: Chest pain, Pulmonary embolism, Elevated troponin Forms Stand Alone Forms: [facility] Prescriptions Prescriptions: No Action metformin 500 mg tablet 500 mg PO BID Qty: 60 RF: 5 sulfamethoxazole-trimethoprim [Bactrim DS] 800-160 mg tablet 1 tab PO BID RF: 0 furosemide [Lasix] 20 mg tablet 20 mg PO QAM RF: 0 metoprolol succinate [Toprol XL] 25 mg tablet extended release 24 hr 25 mg PO QAM RF: 0 albuterol sulfate [Ventolin HFA] 90 mcg/actuation HFA aerosol inhaler 2 puffs INH 6XD PRN (Reason: shortness of breath or wheezing) RF: 0 losartan [Cozaar] 100 mg tablet 100 mg PO QAM RF: 0 Referrals Referrals: Nhan Laureano III, MD [Primary Care Provider] - Discharge Problem: Chest pain Qualifiers: Chest pain type: unspecified Qualified Code(s): R07.9 - Chest pain, unspecified Pulmonary embolism Qualifiers: Pulmonary embolism type: unspecified Chronicity: unspecified Acute cor pulmonale presence: unspecified Qualified Code(s): I26.99 - Other pulmonary embolism without acute cor pulmonale
--- NOTE | 2021-01-03 09:15 | XRay Report ---
XR chest 1V portable HISTORY: 55 years-old Male Chest Pain acute atypical chest pain COMPARISON: Chest radiograph 07/14/2020, chest CT 07/27/2018, chest radiograph 01/27/2018. TECHNIQUE: Portable AP view of the chest FINDINGS: Cardiac silhouette is enlarged. Nodular opacity of the right infrahilar distribution is redemonstrate d which appears to correlate with pulmonary vasculature on comparison studies. No pneumothorax, pleur al effusion, airspace consolidation or overt pulmonary edema. Degenerative changes of the shoulders a nd spine. IMPRESSION: Cardiomegaly without acute process. ACT 112: Negative or not required by law. The above report was generated using voice recognition software. It may contain grammatical, syntax o r spelling errors. Electronically signed by: Armando Conner M.D. 01/03/2021 9:14 AM
[2021-01-03 09:24] LABS: Basophils # (auto) 0.03 K/uL (0-0.2); Basophils % (auto) 0.3 %; Eosinophils # (auto) 0.33 K/uL (0-0.5); Eosinophils % (auto) 3.2 %; Hematocrit (blood only) 44.7 % (42-52); Hemoglobin 14.8 g/dL (14.0-18.0); Immature Granulocytes # (auto) 0.27 K/uL (0.00-0.02); Immature Granulocytes % (auto) 2.6 %; Lymphocytes # (auto) 1.03 K/uL (1.2-3.4); Lymphocytes % (auto) 10.1 %; Mean Corpuscular Hemoglobin 31.9 pg (25-34); Mean Corpuscular Hgb Conc 33.1 g/dL (32-36); Mean Corpuscular Volume 96.3 fL (80-100); Mean Platelet Volume 8.9 fL (7.4-10.4); Monocytes # (auto) 0.54 K/uL (0.11-0.59); Monocytes % (auto) 5.3 %; Neutrophils # (auto) 8.01 K/uL (1.4-6.5); Neutrophils % (auto) 78.5 %; Platelet Count 223 K/uL (130-400); RDW Coefficient of Variation 14.5 % (11.5-14.5); RDW Standard Deviation 51.2 fL (36.4-46.3); Red Blood Count 4.64 M/uL (4.7-6.1); White Blood Count 10.21 K/uL (4.8-10.8)
[2021-01-03 09:31] LABS: Albumin Level 3.1 gm/dl (3.4-5.0); BUN Creatinine Ratio 13.5 (10-20); Blood Urea Nitrogen 15 mg/dl (7-18); Calcium 8.1 mg/dl (8.5-10.1); Carbon Dioxide 24 mmol/L (21-32); Chloride 106 mmol/L (98-107); Est GFR (African American) 86.5 ml/min; Est GFR (Non-African American) 74.6 ml/min; Glucose 149 mg/dl (70-99); Lipase 192 U/L (73-393); Potassium 4.2 mmol/L (3.5-5.1); Sodium 137 mmol/L (136-145)
[2021-01-03 09:35] LABS: Partial Thromboplastin Ratio 0.9; Partial Thromboplastin Time 22.8 Seconds (21.0-31.0)
[2021-01-03 09:57] LABS: Alanine Aminotransferase 55 U/L (12-78); Albumin Globulin Ratio 0.9 (0.9-2); Alkaline Phosphatase 80 U/L (45-117); Aspartate Aminotransferase 18 U/L (15-37); Bilirubin,Total 0.4 mg/dl (0.2-1); Globulin 3.6 gm/dl (2.5-4.0); Total Protein 6.7 gm/dl (6.4-8.2); Troponin I 0.136 ng/ml (0-0.045)
[2021-01-03] MEDS ORDERED: Heparin IV Adult Wt-Based Low-Dose WITH Bolus Protocol STA (10:45)
[2021-01-03] MEDS ORDERED: OPTIRAY 320 125ml IV ONE (10:59)
[2021-01-03] MEDS ORDERED: HEPARIN SOD (PORCINE) 1000 UNIT/ML IV ONE (11:00)
--- NOTE | 2021-01-03 11:24 | CT Scan Report ---
CT ANGIOGRAM OF THE CHEST CLINICAL HISTORY: PE COMPARISON STUDY: July 27, 2018 TECHNIQUE: Following the IV administration of 120 mL of Optiray, CT angiogram of the thorax was perfo rmed from the thoracic inlet to the lung bases utilizing the pulmonary embolus protocol. Images are r eviewed in the axial, sagittal, and coronal planes. IV contrast was administered without complication . MIP imaging was performed. A dose lowering technique was utilized adhering to the principles of AL LESLIE. CT DOSE: 703.68 mGy.cm FINDINGS: There is adequate opacification within main pulmonary artery. Acute pulmonary emboli are seen within left upper lobe pulmonary artery branch. Main pulmonary artery is within upper limits of normal. No evidence of right heart strain seen. Mild four-chamber cardiomegaly is seen with trace pericardial effusion. No significant coronary calci fication demonstrated. There is no axillary, supra clavicle or internal mammary lymphadenopathy seen. Few nonenlarged medias tinal and subcarinal lymph nodes are seen . There are few slightly prominent right hilar pulmonary nodules measuring up to 1.3 cm in short axis ( 4/168) There was no evidence of thoracic aortic dilatation. Tracheobronchial tree is patent. This study is acquired during partial expiratory phase is slightly l imits due to motion artifact. There is mild atelectasis and scarring at dependent portions of bilateral lower lobes. Evaluation of pulmonary parenchyma is limited due to severe motion artifact. Trace pleural effusion is seen on the right. Limited evaluation of upper abdominal viscera shows hepatic steatosis and nodularity of the right adr enal gland and no acute intra-abdominal process. Osseous structures: Multilevel degenerative changes of the spine. IMPRESSION: 1. Study is positive for pulmonary embolus within right upper lobe pulmonary artery branches. No arian dence of right heart strain is seen. Findings will be report to emergency Department. 2. Cardiomegaly. Trace pericardial effusion. 3. Hepatic steatosis. 4. Trace right pleural effusion with atelectasis at dependent portions of bilateral lower lobes. 5. Limited exam due to respiratory motion artifact. 6. Additional findings as above. ACT 112: Negative or not required by law. The above report was generated using voice recognition software. It may contain grammatical, syntax o r spelling errors. Electronically signed by: Angeline Raza DO 01/03/2021 11:22 AM
[2021-01-03] MEDS: HEPARIN SODIUM/DEXTROSE 25,000 UNITS/500 ML BAG IV SCH (11:26)
[2021-01-03] MEDS ORDERED: ASPIRIN 81 MG CHEW PO STA (13:07)
--- NOTE | 2021-01-03 13:23 | History & Physical Report ---
Date of Service January 03, 2021 Assessment & Plan (1) Pulmonary embolism: Plan: Noted on CTA chest on 01/03. No heart strain seen on CT, but troponin mildly elevated. - Heparin started in the ED - Continue for now - Echo & LE Dopplers ordered (2) Chest pain: Plan: With exertion; new since the weekend. Had been doing some lifting, so MSK also possible. Initial troponin was 0.13, and EKG without ischemic changes. No ongoing chest pain during my interview. - Trend troponins and EKGs - Heparin gtt started due to PE - Given ASA 324 mg PO once in the ED - Continue ASA 81 mg PO daily - Cardiology consulted ("dual" consult with Dr. Fields for vascular as well) -> Could consider cath vs. stress test vs. no further investigation depending on troponin curve. Defer to cardiology. (3) Venous stasis ulcer: Plan: Has been seeing Ree Laird for vein ablation and [facility] wound. No indication of infection on my exam on admission. - Vascular (Donnie) consulted as I'm unclear if venous ablation can lead to DVT - Dopplers ordered - Wound care consulted (4) Diabetes type 2, controlled: Plan: A1c was 6.4% in 10/2020. - Hold metformin - Sliding scale insulin (5) Hypertension: Plan: BP in the ED was 120/75. No indication of hypotension from the PE. - Continue home furosemide, losartan, and metoprolol XL. (6) Asthma: Plan: No present shortness of breath while at rest. No wheezing on exam. - Albuterol PRN History of Present Illness Chief Complaint: Chest pain Primary Care Provider: Nhan Laureano MD Very pleasant 55 yo M w/ hx of DM, HTN who presents for chest pain with exertion. He reports that starting about Saturday/Saturday, he noted some left substernal pressure with exertion that he had not noticed in the past. Previously, he was able to walk indefinitely, and with carrying something or more exertion, he would eventually slow down due to shortness of breath. 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 This was new for him. Otherwise, denied any other associated symptoms, and the pain generally went away quickly (minutes) with rest. On my exam, he not having any present chest pain while lying in bed. No other associated symptoms. He does have a history of DVTs, but has not had one in some years per my review of the notes. He has previously been on Eliquis without any bleeding issues, but it was stopped per him "3 weeks ago" though I don't see any notes to that effect. Allergies Allergy/AdvReac Type Severity Reaction Status Date / Time homatropine Allergy Intermediate SYRUP-MENTAL Verified 01/03/21 10:37 CONFUSION hydrocodone Allergy Intermediate SYRUP-MENTAL Verified 01/03/21 10:37 CONFUSION Penicillins Allergy Unknown as a child Verified 01/03/21 10:37 Home Medications Medication Instructions Recorded Confirmed Type metformin 500 mg tablet 500 mg PO BID #60 tab 10/03/20 01/03/21 Rx albuterol sulfate 90 mcg/actuation 2 puffs INH 6XD PRN 01/03/21 01/03/21 History aerosol inhaler (Ventolin HFA) furosemide 20 mg tablet (Lasix) 20 mg PO QAM 01/03/21 01/03/21 History losartan 100 mg tablet (Cozaar) 100 mg PO QAM 01/03/21 01/03/21 History metoprolol succinate 25 mg 25 mg PO QAM 01/03/21 01/03/21 History tablet,extended release 24 hr (Toprol XL) sulfamethoxazole 800 1 tab PO BID 01/03/21 01/03/21 History mg-trimethoprim 160 mg tablet (Bactrim DS) 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 Edema of both lower extremities History of blood clots SUPERFICIAL CLOT IN LEFT LEG (~2015) History of fractured rib Hypertension Thrombophlebitis of leg, superficial Varicose vein Venous stasis ulcer Surgical History H/O vein stripping History of herniorrhaphy UMBILICAL HERNIA REPAIR History of tonsillectomy Hx of removal of cyst FROM BACK Family History Other Family history non-contributory Social History Smoking Status: Never smoker Second Hand Exposure: No; Do You Dip or Chew Tobacco: No; Hx Alcohol Use: No Hx Substance Use: No Preferred Language: Polish Communication Ability: Effective Scrap Cutter Required: No Beliefs That Will Affect Care: None Current Living Situation: Spouse Other Information That Helps Us Care for You: No Feels Safe at Home: Yes Safety Concerns: Feels Safe At This Time Assistive Devices: Glasses Review of Systems Review of Systems: All systems reviewed & are unremarkable except as noted in HPI & below Physical Exam Constitutional: WD/WN, vitals as above Eyes: EOM intact bilaterally; no conjunctival abnormality ENMT: external ear and nose normal, oropharynx normal Neck: trachea midline, no thyromegaly normal visual inspection Respiratory: normal respiratory effort, lungs clear to auscultation no respiratory distress Cardiovascular: RRR, no murmur, no edema No swelling or erythema in legs. Gastrointestinal (Abdomen): Inspection/Auscultation: abdomen normal to inspection; abdomen not distended Musculoskeletal: no cyanosis or clubbing, extremities motor strength 5/5 Skin: no rashes, warm and dry + wound (Right lewis) Neurologic: moves all extremities and awake Psychiatric: Orientation: alert, oriented to person and cooperative Results & Data Results & Data ([facility]) Vital Signs (Past 12 Hours) Vital Signs Temp Pulse Resp BP Pulse Ox 01/03/21 10:31 119 H 15 115/77 01/03/21 10:00 87 23 104/74 95 01/03/21 09:30 91 H 22 105/74 95 01/03/21 09:00 102 H 27 H 114/79 01/03/21 08:57 36.5 C 98 H 24 124/88 95 Code Status & VTE Plan VTE Prophylaxis Plan VTE Prophylaxis will be ordered: Yes PG Care Time/CCT Total # of Minutes Spent Total Time Spent with Patient: Total time spent is greater than 50% in coordination of care (as documented) at patient's floor/unit and/or counseling patient: Coding Level of Care Code 37564 Initial Inpt Care Lvl 3 Diagnoses Pulmonary embolism I26.99 Chest pain R07.9 Venous stasis ulcer I83.015; L97.512 Laterality: right Non-pressure ulcer stage: with fat layer exposed Varicose vein presence: with varicose veins Venous stasis ulcer site: other part of foot Diabetes type 2, controlled E11.9 Hypertension I10 Asthma J45.909 (1) Venous stasis ulcer Laterality: right Non-pressure ulcer stage: with fat layer exposed Varicose vein presence: with varicose veins Venous stasis ulcer site: other part of foot Qualified Code(s): I83.015 - Varicose veins of right lower extremity with ulcer other part of foot; L97.512 - Non-pressure chronic ulcer of other part of right foot with fat layer exposed
[2021-01-03] MEDS ORDERED: ACETAMINOPHEN 325 MG TAB PO PRN (17:34)
[2021-01-03] MEDS ORDERED: CARBOHYDRATES FOR HYPOGLYCEMIA PO PRN (17:34)
[2021-01-03] MEDS ORDERED: ALBUTEROL HFA 8 GM INHALER INH PRN (17:34)
[2021-01-03] MEDS ORDERED: GLUCAGON FOR INJ 1 MG VIAL SQ PRN (17:34)
[2021-01-03] MEDS ORDERED: ONDANSETRON INJ 2 MG/ML 2 ML VIAL IV PRN (17:34)
[2021-01-03] MEDS ORDERED: GLUCOSE 40% GEL 15 GM TUBE PO PRN (17:34)
[2021-01-03] MEDS ORDERED: DEXTROSE 50% 50 ML SYRINGE IV PRN (17:34)
[2021-01-03] MEDS ORDERED: GLUCOSE 10 TABS/TUBE PO PRN (17:34)
--- NOTE | 2021-01-03 18:22 | Ultrasound Report ---
BILATERAL LOWER EXTREMITY VENOUS DOPPLER HISTORY: Pulmonary embolus. Assess for DVT. COMPARISON STUDY: None. FINDINGS: There is normal compressibility, flow, and augmentation within the bilateral lower extremit y deep venous systems. The majority of the right greater saphenous vein is thrombosed. The thrombus e xtends up to the junction of the common femoral vein. IMPRESSION: No DVT within the right or left lower extremity. The majority of the right greater saphenous vein is thrombosed. The thrombus extends up to the junction of the common femoral vein. ACT 112: Negative or not required by law. Electronically signed by: Jose Reeder M.D. 01/03/2021 6:21 PM
--- NOTE | 2021-01-03 19:22 | Electrocardiogram Report ---
Test Reason : Blood Pressure : / mmHG Vent. Rate : 093 BPM Atrial Rate : 093 BPM P-R Int : 140 ms QRS Dur : 092 ms QT Int : 334 ms P-R-T Axes : 049 -40 039 degrees QTc Int : 415 ms Normal sinus rhythm Left axis deviation Abnormal ECG When compared with ECG of 14-JUL-2020 13:13, No significant change was found Confirmed by Ovidio Herbert ([id number]) on 01/03/2021 7:22:03 PM Referred By: REFERRED SELF Confirmed By:Ovidio Herbert
[2021-01-03] MEDS: INSULIN ASPART 100 UNITS/ML 3 ML PEN SC SCH ×2 (20:10→22:02)
[2021-01-04 03:04] LABS: Hematocrit (blood only) 41.7 % (42-52); Hemoglobin 13.8 g/dL (14.0-18.0); Mean Corpuscular Hgb Conc 33.1 g/dL (32-36); Mean Corpuscular Volume 96.8 fL (80-100); Mean Platelet Volume 8.8 fL (7.4-10.4); Platelet Count 210 K/uL (130-400); RDW Coefficient of Variation 14.7 % (11.5-14.5); RDW Standard Deviation 52.7 fL (36.4-46.3); Red Blood Count 4.31 M/uL (4.7-6.1); White Blood Count 7.44 K/uL (4.8-10.8)
[2021-01-04 03:20] LABS: BUN Creatinine Ratio 20.3 (10-20); Creatinine Clr Calc Pharmacy 110.3 ml/min; Est GFR (African American) 104.6 ml/min; Est GFR (Non-African American) 90.3 ml/min; Magnesium 2.7 mg/dl (1.8-2.4); Partial Thromboplastin Ratio 1.3; Partial Thromboplastin Time 33.9 Seconds (21.0-31.0); Potassium 4.1 mmol/L (3.5-5.1); Prothrombin Time 10.3 Seconds (9.0-12.0)
[2021-01-04 03:23] LABS: Basophils # (auto) 0.05 K/uL (0-0.2); Basophils % (auto) 0.7 %; Eosinophils # (auto) 0.28 K/uL (0-0.5); Eosinophils % (auto) 3.8 %; Immature Granulocytes # (auto) 0.48 K/uL (0.00-0.02); Immature Granulocytes % (auto) 6.5 %; Lymphocytes % (auto) 16.1 %; Monocytes # (auto) 0.65 K/uL (0.11-0.59); Monocytes % (auto) 8.7 %; Neutrophils # (auto) 4.78 K/uL (1.4-6.5); Neutrophils % (auto) 64.2 %; RBC Morphology Unremarkable
[2021-01-04 03:25] LABS: Troponin I 0.018 ng/ml (0-0.045)
[2021-01-04] MEDS ORDERED: HEPARIN SOD (PORCINE) 1000 UNIT/ML IV ONE (03:45)
--- NOTE | 2021-01-04 08:35 | Electrocardiogram Report ---
Test Reason : Blood Pressure : / mmHG Vent. Rate : 069 BPM Atrial Rate : 069 BPM P-R Int : 144 ms QRS Dur : 094 ms QT Int : 396 ms P-R-T Axes : 036 -27 -10 degrees QTc Int : 424 ms Sinus rhythm with Premature atrial complexes Minimal voltage criteria for LVH, may be normal variant Borderline ECG When compared with ECG of 03-JAN-2021 08:57, Premature atrial complexes are now Present Confirmed by Ovidio Herbert ([id number]) on 01/04/2021 8:35:14 AM Referred By: REFERRED SELF Confirmed By:Ovidio Herbert
--- NOTE | 2021-01-04 08:55 | Vascular Medicine Consultation ---
Date of Consultation January 04, 2021 Assessment & Plan (1) Pulmonary embolism: 2. Chronic venous insufficiency 3. Venous stasis ulcer 4. History of DVT 5. Type [address] Fields Patient underwent right GSV endovenous adhesive ablation in October 2020 in the setting of advanced venous disease with recurrent venous ulcers. On 1 month followup ultrasound was noted to have thrombus in proximal GSV extending to junction with deep system. He was started on anticoagulation with Eliquis which he took for a 3 week period. Presented yesterday with several day history of chest tightness and dyspnea. Noted to have PE in right upper lobe pulmonary artery branch on CTA. LE venous duplex study similar to previous. He is now asymptomatic on heparin. Hemodynamically stable. No signs of right heart strain on CTA, echo pending. Would consider this a provoked DVT and not an Eliquis failure since he has been off it for several weeks. Reasonable to resume Eliquis 5 mg bid prior to discharge and continue for 6 months. Mild elevation in troponin yesterday likely secondary to his PE rather than ACS. Chest pain free today and repeat troponin negative. No acute ECG changes. Echo pending. Thank you for allowing us to participate in the care of this patient. Supervising Physician Co-Signing Physician Notes Agree with assessment and plan as outlined by JOSE Laird. Admitted with PE likely provoked following recent GSV adhesive closure. Had been on anticoagulation with Eliquis due to thrombus extension from GSV to SFJ on post preprocedure surveillance imaging. Eliquis had been stopped recently. Currently chest pain-free, hemodynamically stable. No hypoxia, breathing comfortably. Echo reviewed. LV function preserved. RV size and function normal. Suspicion for ACS is very low. Discussed with Dr. Kaba. Feel can be treated with acute PE treatment dose apixaban. Continue apixaban for 6 months. History of Present Illness Reason for Consultation: PE, elevated troponin Attending Physician: Josemanuel Gomez MD History of Present Illness Mr. Lua is a pleasant 54 year old male admitted yesterday with pulmonary embolism. Medical history significant for chronic venous insufficiency, recurrent venous ulcers, history of DVT, type 2 DM, hypertension. Patient is well known to us, he was initially seen at the wound care center in September 2020 in the setting of recurrent, slow healing right lower extremity venous stasis ulcers. He also has a history of DVT around 2019 after a shoulder surgery. He is not chronically anticoagulated. Venous reflux study in July 2020 remarkable for dilated great saphenous vein with pathologic reflux bilaterally. He had evidence of nonocclusive thrombus in both GSV but no DVT. On October 19 we performed right GSV adhesive ablation (venaseal) and on October 27 ultrasound guided foam sclerotherapy of right GSV tributaries. Initial post procedure ultrasounds without DVT. 1 month followup ultrasound on 11/29/20 showed thrombus in the proximal GSV extending slightly into the CFV. Patient was started on Eliquis 5 mg bid with plans to repeat an ultrasound after 3 weeks. Patient did not followup with our office and stopped Eliquis after 3 weeks. He had an appointment at the wound clinic yesterday and endorsed chest tightness and was sent to the emergency department. CTA of his chest with pulmonary embolus involving right upper lobe pulmonary artery branches. No evidence of right heart strain. Lower extremity venous duplex reviewed, similar findings to prior ultrasound at our office with thrombus of the right GSV extending to the CFV, no DVT. He was initiated on heparin. Troponin was mildly elevated at 0.136, normal today. No acute ECG changes. Echo pending. He states his symptoms started over the weekend with intermittent chest tightness and very mild dyspnea. Chest tightness was worse yesterday at the wound care center. Continued to have intermittent tightness last evening but no recurrent chest discomfort today. Denies dyspnea, orthopnea or PND. No palpitations, lightheadedness, near syncope or syncope. No abnormal bleeding. Unchanged bilateral lower extremity edema. Both legs were sore over the weekend which he attributed to lifting heavy appliances at work last week. No right leg erythema or increased swelling. Has persistent right lewis wound, ankle wound is healed. He has no history of coronary artery disease. Social history: . No tobacco use Allergies Allergy/AdvReac Type Severity Reaction Status Date / Time homatropine Allergy Intermediate SYRUP-MENTAL Verified 01/03/21 10:37 CONFUSION hydrocodone Allergy Intermediate SYRUP-MENTAL Verified 01/03/21 10:37 CONFUSION Penicillins Allergy Unknown as a child Verified 01/03/21 10:37 Home Medications Medication Instructions Recorded Confirmed Type metformin 500 mg tablet 500 mg PO BID #60 tab 10/03/20 01/03/21 Rx albuterol sulfate 90 mcg/actuation 2 puffs INH 6XD PRN 01/03/21 01/03/21 History aerosol inhaler (Ventolin HFA) furosemide 20 mg tablet (Lasix) 20 mg PO QAM 01/03/21 01/03/21 History losartan 100 mg tablet (Cozaar) 100 mg PO QAM 01/03/21 01/03/21 History metoprolol succinate 25 mg 25 mg PO QAM 01/03/21 01/03/21 History tablet,extended release 24 hr (Toprol XL) sulfamethoxazole 800 1 tab PO BID 01/03/21 01/03/21 History mg-trimethoprim 160 mg tablet (Bactrim DS) Patient History Medical History Compressed vertebrae COVID-19 Depressed skull fracture A YOUNG CHILD Edema of both lower extremities History of blood clots SUPERFICIAL CLOT IN LEFT LEG (~2015) History of fractured rib Hypertension Thrombophlebitis of leg, superficial Varicose vein Venous stasis ulcer Surgical History H/O vein stripping History of herniorrhaphy UMBILICAL HERNIA REPAIR History of tonsillectomy Hx of removal of cyst FROM BACK Family History Other Family history non-contributory Social History Smoking Status: Never smoker Second Hand Exposure: No; Hx Alcohol Use: No Hx Substance Use: No Preferred Language: Uzbek Communication Ability: Effective Ct Scan Technician Required: No Beliefs That Will Affect Care: None Current Living Situation: Spouse How many Children do You have: 0 Feels Safe at Home: Yes Assistive Devices: Glasses Physical Exam Physical Exam: General: No acute distress, comfortable. HEENT: Head is normal. PERRLA. EOMI. Sclerae anicteric. Lungs: Clear to auscultation bilaterally without rales, rhonchi or wheezes. Cardiac: Regular rate and rhythm. S1-S2 normal. No appreciable murmur, gallop or rub. Extremities/vascular: --Well perfused. Trace to 1+ lower extremity edema bilaterally --Radial, DP and PT pulses 2+ bilaterally --Reticular, spider veins bilaterally --Right lewis ulcer, healed right ankle ulcer --Hyperpigmentation bilaterally. Atrophie andrews, skin induration right lewis Neurologic: Nonfocal Psychiatric: Affect appropriate. Alert and oriented. Results & Data ([facility]) Vital Signs (Past 12 Hours) Vital Signs Temp Pulse Pulse Resp BP BP Pulse Ox 01/04/21 07:51 70 01/04/21 07:26 36.6 C 68 18 125/85 95 01/04/21 04:00 36.6 C 73 18 120/78 93 01/03/21 23:00 79 01/03/21 21:30 83 01/03/21 21:28 36.6 C 88 18 124/86 95 01/03/21 20:49 89 16 114/77 95 Laboratory Results Laboratory Results - last 24 hr 01/03/21 01/03/21 01/03/21 18:33 19:02 21:47 WBC RBC Hgb Hct MCV MCH MCHC RDW Std Deviation RDW Coeff of Beth Plt Count MPV Immature Gran % (Auto) Neut % (Auto) Lymph % (Auto) [place] % (Auto) Eos % (Auto) Baso % (Auto) Neut # (Auto) Lymph # (Auto) [place] # (Auto) Eos # (Auto) Baso # (Auto) Immature Gran # (Auto) RBC Morphology PT INR APTT PTT Ratio Sodium Potassium Chloride Carbon Dioxide Anion Gap BUN Creatinine Est Cr Clr Drug Dosing Est GFR ( Amer) Est GFR (Non-Af Amer) BUN/Creatinine Ratio Glucose POC Glucose 103 H 118 H Calcium Magnesium Troponin I 0.044 01/04/21 01/04/21 01/04/21 02:51 02:51 02:51 WBC 7.44 RBC 4.31 L Hgb 13.8 L Hct 41.7 L MCV 96.8 MCH 32.0 MCHC 33.1 RDW Std Deviation 52.7 H RDW Coeff of Beth 14.7 H Plt Count 210 MPV 8.8 Immature Gran % (Auto) 6.5 Neut % (Auto) 64.2 Lymph % (Auto) 16.1 [place] % (Auto) 8.7 Eos % (Auto) 3.8 Baso % (Auto) 0.7 Neut # (Auto) 4.78 Lymph # (Auto) 1.20 [place] # (Auto) 0.65 H Eos # (Auto) 0.28 Baso # (Auto) 0.05 Immature Gran # (Auto) 0.48 H RBC Morphology Unremarkable PT 10.3 INR 1.0 APTT 33.9 H PTT Ratio 1.3 Sodium 140 Potassium 4.1 Chloride 107 Carbon Dioxide 29 Anion Gap 4.0 BUN 19 H Creatinine 0.94 Est Cr Clr Drug Dosing 110.3 Est GFR ( Amer) 104.6 Est GFR (Non-Af Amer) 90.3 BUN/Creatinine Ratio 20.3 H Glucose 121 H POC Glucose Calcium 8.0 L Magnesium 2.7 H Troponin I 0.018 01/04/21 01/04/21 01/04/21 07:36 10:00 11:50 WBC RBC Hgb Hct MCV MCH MCHC RDW Std Deviation RDW Coeff of Beth Plt Count MPV Immature Gran % (Auto) Neut % (Auto) Lymph % (Auto) [place] % (Auto) Eos % (Auto) Baso % (Auto) Neut # (Auto) Lymph # (Auto) [place] # (Auto) Eos # (Auto) Baso # (Auto) Immature Gran # (Auto) RBC Morphology PT INR APTT 45.3 H* PTT Ratio 1.7 Sodium Potassium Chloride Carbon Dioxide Anion Gap BUN Creatinine Est Cr Clr Drug Dosing Est GFR ( Amer) Est GFR (Non-Af Amer) BUN/Creatinine Ratio Glucose POC Glucose 113 H 117 H Calcium Magnesium Troponin I PG Care Time/CCT Total # of Minutes Spent Total Time Spent with Patient: Total time spent is greater than 50% in coordination of care (as documented) at patient's floor/unit and/or counseling patient: Coding Level of Care Code 47095 Inpt Consult Level 4 Diagnoses Pulmonary embolism I26.99 Acute cor pulmonale presence: unspecified Chronicity: unspecified Pulmonary embolism type: unspecified (1) Pulmonary embolism Acute cor pulmonale presence: unspecified Chronicity: unspecified Pulmonary embolism type: unspecified Qualified Code(s): I26.99 - Other pulmonary embolism without acute cor pulmonale
[2021-01-04] MEDS: INSULIN ASPART 100 UNITS/ML 3 ML PEN SC SCH ×4 (09:10→20:57)
[2021-01-04] MEDS: ASPIRIN 81 MG ECTAB PO SCH (09:12)
[2021-01-04] MEDS: FUROSEMIDE 20 MG TAB PO SCH (09:14)
[2021-01-04] MEDS: LOSARTAN POTASSIUM 50 MG TAB PO SCH (09:15)
[2021-01-04] MEDS: METOPROLOL SUCC 25MG EXT REL TAB PO SCH (09:15)
[2021-01-04] MEDS: HEPARIN SODIUM/DEXTROSE 25,000 UNITS/500 ML BAG IV SCH (09:18)
[2021-01-04 10:30] LABS: Partial Thromboplastin Ratio 1.7
[2021-01-04 10:32] LABS: Partial Thromboplastin Time 45.3 Seconds (21.0-31.0)
--- NOTE | 2021-01-04 17:00 | XCELERA ---
[id number]
[2021-01-04 17:19] LABS: Partial Thromboplastin Ratio 1.6; Partial Thromboplastin Time 42.5 Seconds (21.0-31.0)
[2021-01-04] MEDS: APIXABAN 5 MG TABLET PO SCH (20:57)
--- NOTE | 2021-01-05 00:06 | Hospitalist Progress Note ---
Date of Service January 04, 2021 Assessment & Plan (1) Pulmonary embolism: Plan: Currently on heparin drip. Cause - right leg greater saphenous vein thrombus, near the junction with femoral vein. Had been off eliquis for several weeks thus would not consider this a treatment failure. Spoke with Dr Fields - will place back on eliquis BID for 6 months. Stop heparin later today. Start eliquis 10mg BID x 1 week, then 5mg BID thereafter. Echo returned with no right heart issues. Troponin elevation simply myocardial demand ischemia rather than RV infarct or RV strain. (2) Superficial thrombosis of right lower extremity: Plan: greater saphenous vein thrombosis, near junction with femoral vein. see #1 above. eliquis to be resumed. (3) Chest pain: Plan: EKG without ischemic changes. Trop scantly elevated. Unlikely to be ACS. Trop elevation likely demand ischemia. Echo reviewed; normal LV wall motion. Chest pain - due to PE itself? Either way pain is resolved and cardiology not recommending ischemic eval. (4) Venous stasis ulcer: Plan: history of none on exam at this time (5) Diabetes type 2, controlled: Plan: A1c was 6.4% in 10/2020. - Hold metformin - Sliding scale insulin (6) Hypertension: Plan: Controlled. Continue home furosemide, losartan, and metoprolol XL. (7) Asthma: Plan: No flare at this time Albuterol PRN Plan: can likely d/c home in am Admission and Anticipated Discharge Date Admission Date: January 03, 2021 Subjective pt w/o complaints no leg pains chest pain resolved no pleuritic pain no o2 requirement states he had been Review of Systems Review of Systems: gen - no weakness, fatigue, or fever pulm - no cough cardio - no chest pain gi - no nausea, emesis or abd pain Physical Exam Physical Exam: gen - NAD neck - no JVD heart - RRR, s1 s2, no murmur lungs - CTA b/l abd - soft NT ND ext - no edema, no palpable cords over right thigh or signs of inflammation of anterior right thigh Results & Data Results & Data ([facility]) Vital Signs (Past 12 Hours) Vital Signs Temp Pulse Pulse Resp BP Pulse Ox 01/04/21 23:23 36.6 C 70 20 105/75 95 01/04/21 18:55 36.7 C 81 18 120/72 94 01/04/21 15:40 36.6 C 74 18 114/76 95 01/04/21 14:20 75 Laboratory Results Laboratory Results - last 24 hr 01/04/21 01/04/21 01/04/21 02:51 02:51 02:51 WBC 7.44 RBC 4.31 L Hgb 13.8 L Hct 41.7 L MCV 96.8 MCH 32.0 MCHC 33.1 RDW Std Deviation 52.7 H RDW Coeff of Beth 14.7 H Plt Count 210 MPV 8.8 Immature Gran % (Auto) 6.5 Neut % (Auto) 64.2 Lymph % (Auto) 16.1 Mckinley % (Auto) 8.7 Eos % (Auto) 3.8 Baso % (Auto) 0.7 Neut # (Auto) 4.78 Lymph # (Auto) 1.20 Mckinley # (Auto) 0.65 H Eos # (Auto) 0.28 Baso # (Auto) 0.05 Immature Gran # (Auto) 0.48 H RBC Morphology Unremarkable PT 10.3 INR 1.0 APTT 33.9 H PTT Ratio 1.3 Sodium 140 Potassium 4.1 Chloride 107 Carbon Dioxide 29 Anion Gap 4.0 BUN 19 H Creatinine 0.94 Est Cr Clr Drug Dosing 110.3 Est GFR ( Amer) 104.6 Est GFR (Non-Af Amer) 90.3 BUN/Creatinine Ratio 20.3 H Glucose 121 H POC Glucose Calcium 8.0 L Magnesium 2.7 H Troponin I 0.018 01/04/21 01/04/21 01/04/21 07:36 10:00 11:50 WBC RBC Hgb Hct MCV MCH MCHC RDW Std Deviation RDW Coeff of Beth Plt Count MPV Immature Gran % (Auto) Neut % (Auto) Lymph % (Auto) Mckinley % (Auto) Eos % (Auto) Baso % (Auto) Neut # (Auto) Lymph # (Auto) Mckinley # (Auto) Eos # (Auto) Baso # (Auto) Immature Gran # (Auto) RBC Morphology PT INR APTT 45.3 H* PTT Ratio 1.7 Sodium Potassium Chloride Carbon Dioxide Anion Gap BUN Creatinine Est Cr Clr Drug Dosing Est GFR ( Amer) Est GFR (Non-Af Amer) BUN/Creatinine Ratio Glucose POC Glucose 113 H 117 H Calcium Magnesium Troponin I 01/04/21 01/04/21 01/04/21 16:33 16:43 19:56 WBC RBC Hgb Hct MCV MCH MCHC RDW Std Deviation RDW Coeff of Beth Plt Count MPV Immature Gran % (Auto) Neut % (Auto) Lymph % (Auto) Mckinley % (Auto) Eos % (Auto) Baso % (Auto) Neut # (Auto) Lymph # (Auto) Mckinley # (Auto) Eos # (Auto) Baso # (Auto) Immature Gran # (Auto) RBC Morphology PT INR APTT 42.5 H PTT Ratio 1.6 Sodium Potassium Chloride Carbon Dioxide Anion Gap BUN Creatinine Est Cr Clr Drug Dosing Est GFR ( Amer) Est GFR (Non-Af Amer) BUN/Creatinine Ratio Glucose POC Glucose 104 H 109 H Calcium Magnesium Troponin I 01/04/21 23:22 WBC RBC Hgb Hct MCV MCH MCHC RDW Std Deviation RDW Coeff of Beth Plt Count MPV Immature Gran % (Auto) Neut % (Auto) Lymph % (Auto) Mckinley % (Auto) Eos % (Auto) Baso % (Auto) Neut # (Auto) Lymph # (Auto) Mckinley # (Auto) Eos # (Auto) Baso # (Auto) Immature Gran # (Auto) RBC Morphology PT INR APTT Pending PTT Ratio Pending Sodium Potassium Chloride Carbon Dioxide Anion Gap BUN Creatinine Est Cr Clr Drug Dosing Est GFR ( Amer) Est GFR (Non-Af Amer) BUN/Creatinine Ratio Glucose POC Glucose Calcium Magnesium Troponin I PG Care Time/CCT Total # of Minutes Spent Total Time Spent with Patient: Total time spent is greater than 50% in coordination of care (as documented) at patient's floor/unit and/or counseling patient: Coding Level of Care Code 28442 Subseq Hosp Care Lvl 2 Diagnoses Pulmonary embolism I26.99 Chest pain R07.9 Venous stasis ulcer I83.015; L97.512 Laterality: right Non-pressure ulcer stage: with fat layer exposed Varicose vein presence: with varicose veins Venous stasis ulcer site: other part of foot Diabetes type 2, controlled E11.9 Hypertension I10 Asthma J45.909 Superficial thrombosis of right lower extremity I82.811 (1) Venous stasis ulcer Laterality: right Non-pressure ulcer stage: with fat layer exposed Varicose vein presence: with varicose veins Venous stasis ulcer site: other part of foot Qualified Code(s): I83.015 - Varicose veins of right lower extremity with ulcer other part of foot; L97.512 - Non-pressure chronic ulcer of other part of right foot with fat layer exposed
[2021-01-05 00:07] LABS: Partial Thromboplastin Time 53.9 Seconds (21.0-31.0)
[2021-01-05 07:07] LABS: Partial Thromboplastin Time 26.5 Seconds (21.0-31.0)
--- NOTE | 2021-01-05 07:40 | Discharge Summary ---
Date of Service January 05, 2021 Admission HPI Per Admitting Provider Very pleasant 55 yo M w/ hx of DM, HTN who presents for chest pain with exertion. He reports that starting about Saturday/Saturday, he noted some left substernal pressure with exertion that he had not noticed in the past. Previously, he was able to walk indefinitely, and with carrying something or more exertion, he would eventually slow down due to shortness of breath. 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 This was new for him. Otherwise, denied any other associated symptoms, and the pain generally went away quickly (minutes) with rest. On my exam, he not having any present chest pain while lying in bed. No other associated symptoms. He does have a history of DVTs, but has not had one in some years per my review of the notes. He has previously been on Eliquis without any bleeding issues, but it was stopped per him "3 weeks ago" though I don't see any notes to that effect. Principal Diagnosis pulmonary embolism saphenous vein thrombus rle venous stasis ulcer Discharge Exam The patient appeared well Vital signs as documented. Lungs are clear to auscultation and appear unlabored Cardiac exam, Rhythm is regular.. No murmurs, rubs or gallops. Abdominal exam reveals normal bowel sounds, soft non tender, no masses Extremities are with chronic venous stasis changes there is a small open area to his right lower leg this does not look to be actively infected Aquacel is in place patient will follow up with wound care with regard to this Neurologic exam is alert and oriented, no focal loss of strength or sensation Skin is with stasis changes peripherally Psychologically is without concerns for anxiety or depression. Discharge Data Allergies Allergy/AdvReac Type Severity Reaction Status Date / Time homatropine Allergy Intermediate SYRUP-MENTAL Verified 01/03/21 10:37 CONFUSION hydrocodone Allergy Intermediate SYRUP-MENTAL Verified 01/03/21 10:37 CONFUSION Penicillins Allergy Unknown as a child Verified 01/03/21 10:37 Consultations 01/03/21 11:29 ED Decision to Admit Stat 01/03/21 17:34 Consult Vascular Surgery Routine Ordered Studies 01/03/21 10:45 CT angio chest PE protocol Stat 01/03/21 17:34 US venous doppler LE BI Routine Hospital Course (1) Pulmonary embolism: Noted on CTA chest on 01/03. No heart strain seen on CT, but troponin mildly elevated. - Heparin started in the ED, was seen by vascular surgery, restarted eliquis, bid, continue at least 6 months - - Echo, no right heart strain, preserved EF LE Dopplers shows Saphenous vein thrombus no other (2) Chest pain: With exertion; new since the weekend. Had been doing some lifting, so MSK also possible. Initial troponin was 0.13, and EKG without ischemic changes. No ongoing chest pain - isolated elevated troponin, likley from heart strain, - Continue ASA 81 mg PO daily - Cardiology consulted ("dual" consult with Dr. Fields for vascular as well feels the troponin secondary to PE (3) Venous stasis ulcer: Has been seeing Ree Laird for vein ablation and [facility] for RLE wound. No indication of infection on my exam on admission. - Wound care will follow as an outpatient (4) Diabetes type 2, controlled: A1c was 6.4% in 10/2020. - typically on home metfromin (5) Hypertension: . No indication of hypotension from the PE. - Continue home furosemide, losartan, and metoprolol XL. (6) Asthma: No present shortness of breath while at rest. No wheezing on exam. - Albuterol PRN Total Time Total Time Spent Total Time Spent (In Minutes): It required greater than 30 minutes to prepare this patient for discharge Discharge Plan Discharge Items Patient Disposition: Home - Self-Care Reason For Visit: CHEST PAIN, PE Discharge Diagnosis: Pulmonary Embolism saphenous vein thrombosis Activity: Resume your previous activity Non-emergency contact: Primary Care Provider and [employer] Call non-emergency contact if: your symptoms worsen and you have a fever Follow-up/Referrals: Nhan Laureano III, MD [Primary Care Provider] - 01/10/21 2:00 pm (Your appointment is with the nurse practioner, Amalia Mancera. If you have any questions or need to change this appointment, please call [phone].) Diet: Carb Consistent or DM2 Addtl Attending Provider Instructions: Please follow up in the wound clinic, in the interim wash wound with soap and water, dry well and cover elevate legs when resting Medication Instructions: Your condition is typically treated with an anticoagulant. Anticoagulants will thin your blood to help prevent new clots. * You should take her medication exactly as directed. * Never skip a dose. * Never take a double dose. If you miss a dose, take it as soon as you remember. Call your Primary Care doctor if you experience any of the following: * Swelling or Pain in your leg * Sudden, continuous pain deep in a muscle * Pain that worsens when you are active or when you stand still for a long time * Chest Pain * Sudden Shortness of Breath * Rapid or pounding heart beat * Fainting * Dizziness * Cough with blood or bloody sputum * Sweating more than normal * Bruises * Heavy or uncontrolled bleeding * Blood in your urine, stool or vomit * Black or tarry stools Caring for Your Self at Home: * Avoid sitting, standing or lying down for long periods without moving your legs and feet * When traveling by car, stop to get out and move around at least once every 3 hours * On long airplane, train or bus rides, get up and move around when possible * If you can't get up, wiggle your toes and tighten your calves to keep your blood moving Follow Up: It is important for you to keep your follow up appointments with your medical provider. Pending Studies at Discharge: No Stand-Alone Forms: My [facility], Smoking Cessation Medications and DC Order Prescriptions: New Eliquis 5 mg Tablet 10 mg PO BID Qty: 14 RF: 0 Eliquis 5 mg tablet 5 mg PO BID Qty: 60 RF: 5 Continued metformin 500 mg tablet 500 mg PO BID Qty: 60 RF: 5 furosemide [Lasix] 20 mg tablet 20 mg PO QAM RF: 0 metoprolol succinate [Toprol XL] 25 mg tablet extended release 24 hr 25 mg PO QAM RF: 0 albuterol sulfate [Ventolin HFA] 90 mcg/actuation HFA aerosol inhaler 2 puffs INH 6XD PRN (Reason: shortness of breath or wheezing) RF: 0 losartan [Cozaar] 100 mg tablet 100 mg PO QAM RF: 0 Discontinued sulfamethoxazole-trimethoprim [Bactrim DS] 800-160 mg tablet 1 tab PO BID RF: 0 Discharge Orders: Discharge Order (Routine); Ordered 01/05/21 Ordered By: George E. Covaleski Krames/Other Patient Handouts: 5 Steps for Eating Healthier, Weight Management: Healthy Eating Admission Data Admit Date/Time: 01/03/21 13:05 Attending Provider: George Foley Admit Provider: Josemanuel Gomez Primary Care Provider: Nhan Laureano III Other Providers: Josemanuel Gomez ; Shon Fields Other Interventions: Discharge Summary Assessment (RN) Last Done: 01/05/21 11:48 Coding Level of Care Code D/C DAY MANAGEMENT >30 MINS Diagnoses Pulmonary embolism I26.99 Chest pain R07.9 Venous stasis ulcer I83.015; L97.512 Laterality: right Non-pressure ulcer stage: with fat layer exposed Varicose vein presence: with varicose veins Venous stasis ulcer site: other part of foot Diabetes type 2, controlled E11.9 Hypertension I10 Asthma J45.909
[2021-01-05] MEDS: INSULIN ASPART 100 UNITS/ML 3 ML PEN SC SCH ×2 (08:09→11:44)
[2021-01-05] MEDS: ASPIRIN 81 MG ECTAB PO SCH (08:11)
[2021-01-05] MEDS: METOPROLOL SUCC 25MG EXT REL TAB PO SCH (08:11)
[2021-01-05] MEDS: LOSARTAN POTASSIUM 50 MG TAB PO SCH (08:12)
[2021-01-05] MEDS: FUROSEMIDE 20 MG TAB PO SCH (08:12)
[2021-01-05] MEDS: APIXABAN 5 MG TABLET PO SCH (08:12)
--- NOTE | 2021-01-05 08:33 | Electrocardiogram Report ---
Test Reason : Blood Pressure : / mmHG Vent. Rate : 061 BPM Atrial Rate : 061 BPM P-R Int : 150 ms QRS Dur : 102 ms QT Int : 426 ms P-R-T Axes : 033 -27 035 degrees QTc Int : 428 ms Normal sinus rhythm Minimal voltage criteria for LVH, may be normal variant Borderline ECG When compared with ECG of 04-JAN-2021 06:13, Premature atrial complexes are no longer Present Nonspecific T wave abnormality has replaced inverted T waves in Inferior leads Confirmed by Ovidio Herbert ([id number] on 01/05/2021 8:33:12 AM Referred By: REFERRED SELF Confirmed By:Ovidio Herbert
--- NOTE | 2021-01-05 10:38 | Vascular Medicine ProgressNote ---
Date of Service January 05, 2021 Assessment & Plan (1) Pulmonary embolism: Plan: 2. Chronic venous insufficiency 3. Venous stasis ulcer 4. History of DVT 5. Type 2 DM Patient is stable from a vascular standpoint. Recommend walking halls today, if remains asymptomatic OK to be discharged. Recommend Eliquis 10 mg bid x 7 days then 5 mg bid. Plan to see patient in our office in 2 weeks. Admission and Anticipated Discharge Date Admission Date: January 03, 2021 Subjective Pt is doing well today, anxious to be discharged. No recurrent chest pain or dyspnea. No issues overnight. No leg pain or swelling. Heparin has been transitioned to Eliquis. Echo with normal RV function. Physical Exam 2 Physical Exam: General: No acute distress, comfortable. HEENT: Head is normal. PERRLA. EOMI. Sclerae anicteric. Lungs: Clear to auscultation bilaterally without rales, rhonchi or wheezes. Cardiac: Regular rate and rhythm. S1-S2 normal. No appreciable murmur, gallop or rub. Extremities/vascular: --Well perfused. Trace to 1+ lower extremity edema bilaterally --Radial, DP and PT pulses 2+ bilaterally --Reticular, spider veins bilaterally --Right lewis ulcer, healed right ankle ulcer --Hyperpigmentation bilaterally. Atrophie andrews, skin induration right lewis Neurologic: Nonfocal Psychiatric: Affect appropriate. Alert and oriented. Results & Data ([facility]) Vital Signs (Past 12 Hours) Vital Signs Temp Pulse Pulse Resp BP Pulse Ox 01/05/21 07:13 36.5 C 56 L 20 147/87 H 94 01/05/21 06:41 61 01/05/21 04:00 36.6 C 70 20 115/75 93 01/04/21 23:23 36.6 C 70 20 105/75 95 PG Care Time/CCT Total # of Minutes Spent Total Time Spent with Patient: Total time spent is greater than 50% in coordination of care (as documented) at patient's floor/unit and/or counseling patient: Coding Level of Care Code 86805 Subseq Hosp Care Lvl 1 Diagnoses Pulmonary embolism I26.99 Acute cor pulmonale presence: unspecified Chronicity: unspecified Pulmonary embolism type: unspecified (1) Pulmonary embolism Acute cor pulmonale presence: unspecified Chronicity: unspecified Pulmonary embolism type: unspecified Qualified Code(s): I26.99 - Other pulmonary embolism without acute cor pulmonale
== END 2021-01-05 13:01 | disposition home or self-care (01) | DRG 176 ==
LOC: ED 08:50 → EDINP 13:05 → SUATTDRO 13:05 → 2N 19:25

== ENCOUNTER 2023-05-11 11:24 | Inpatient (IN) ==
--- NOTE | 2023-05-11 11:54 | Emergency Department Note ---
Impression & Plan Hyponatremia, Vertigo ED Provider Note NAME: LUCY CASTRO AGE: 57 SEX: M : 1965 ARRIVES VIA: Walk-In INFORMANT: Patient, ED PROVIDER(S): Ramez Thao MD CHIEF COMPLAINT: MEDICAL DECISION MAKING: Patient presents due to concern for vertiginous symptoms. IV was established blood was obtained patient was ordered meclizine and Zofran and fluids. CT and CT angiography of the head and neck ordered. Blood work shows a normal white count mild anemia hemoglobin of 13.8 with normal platelet count. Kidney function is unremarkable but patient does have hyponatremia at 121 which has gotten progressively worse over the last several days as recently as 139 on May 07. Urine and serum osmolality was ordered in addition to urine electrolytes. Patient's hyponatremia may be contributing to the patient's symptoms. CT head and CT angiography of the head and neck are negative. I did speak with the on-call hospitalist service Dr. Cruz and the patient was admitted to the medicine service. I did update the patient is comfortable with this plan of care. He does feel as though his vertigo has improved. Discussion w/ other healthcare providers: None Prior /Outside records reviewed: Patient was seen due to concern for shortness of breath was diagnosed with shortness of breath hyponatremia dehydration and constipation after his emergency department visit. Patient was noted to be hypotensive upon arrival via EMS. Patient has a prior history of DVT or PE. Patient was noted to be hyponatremic sodium [address] head and pelvis without contrast with no acute pathology of the mild to moderate colonic fecal retention. COVID flu RSV negative VBG grossly unremarkable. I did review a primary care visit from April 29 patient was seen due to concern for hypertension and headache. The patient was transition from 5 to 10 mg of amlodipine., 2022 from [facility] Differential diagnosis: Benign positional vertigo, dehydration, hypovolemia, anemia, infection, hypoglycemia, electrolyte abnormalities, arrhythmia, tox among others were considered. Diagnostics, as interpreted by me: ECG: Normal sinus rhythm, rate of 88, normal intervals, left axis deviation no ST elevations. Cardiac monitoring: An order was placed for continuous cardiac monitoring. The monitor shows a rate of 85 with sinus rhythm. Patient was placed on pulse oximetry Medical decision rules: None Imaging studies: I informally interpreted the patient's chest x-ray which does not show obvious pneumothorax with formal report to follow. I informally interpreted the patient's CT head which does not show obvious ICH with formal report to follow. HPI: Patient presents due to concern for vertiginous symptoms. The patient states that he got up to use the bathroom this morning got very dizzy to where he felt like the room was spinning and did have an episode of vomiting. Patient Nuys any falls or trauma. Patient is had a "slight headache." Patient did not take anything for symptoms this morning. The patient was also having some difficulty with his balance. No prior history of stroke or mini stroke. The patient was seen recently for shortness of breath and still states that he has some occasional shortness of breath. Patient denies any prior history of heart or lung disease. He does chew tobacco but does not smoke. PAST MEDICAL HISTORY: See Below PAST SURGICAL HISTORY: See Below SOCIAL HISTORY: See Below HOME MEDICATIONS: See Below ALLERGIES: See Below VITALS: See Below PHYSICAL EXAMINATION: GENERAL: NAD, non-toxic. Wearing glasses. BMI 36. EYE EXAM: Normal conjunctiva. PERRL, no anisocoria and EOM's grossly intact w/o pain. Left-sided leftward beating nystagmus noted not present when looking to the right, no horizontal nystagmus. OROPHARYNX: Moist mucus membranes, grossly normal dentition. NECK: Supple, no nuchal rigidity, no adenopathy, non-tender. No signs of meningismus. FROM of the neck with good chin to chest and neck extension. No stridor. LUNGS: Clear to auscultation. Normal chest wall mechanics. HEART: NSR, no MRG. ABDOMEN: Abdomen soft, non-tender, no masses, no rebound or guarding. BACK: No CVA TTP. SKIN: No rashes and no bruising. UPPER EXTREMITIES: Upper extremities are grossly normal. LOWER EXTREMITIES: Grossly normal, no edema. NEURO EXAM: A&O x3, cranial nerves II-XII grossly intact, normal speech, moves all 4 extremities but with symmetric lower extremity weakness 4 out of 5. No drift reasonable finger to the nose although more difficulty with the left upper extremity compared to the right. No sensory deficits. Past Med/Surg History Medical History History of colon polyps Chronic wound RLE. Follows with wound clinic. Cellulitis Rt knee -- reason for abx (prescribed by [facility]) Urinary frequency History of COVID-19 asymptomatic. unsure when, sometime in 2020. Pulmonary embolism ~05/2021. Treated with [facility]. Placed on Eliquis (no longer on Eliquis) Chronic venous insufficiency following with Dr. Fields. Diabetes type 2, controlled Right leg DVT pt denies DVT -- states it was superficial clot of right leg about a year ago (~2020) Compressed vertebrae History of fractured rib Depressed skull fracture A YOUNG CHILD History of blood clots SUPERFICIAL CLOT IN LEFT LEG (~2015) Hypertension Varicose vein Surgical History History of colonoscopy History of prior ablation treatment hx right GSV History of repair of rotator cuff (~10/2020) Right H/O vein stripping Hx of removal of cyst FROM BACK History of herniorrhaphy UMBILICAL HERNIA REPAIR History of tonsillectomy Family History Father Myocardial infarction Other Family history non-contributory Denies family history of Ovarian cancer Prostate cancer Breast cancer Lung cancer Colorectal cancer Social History Smoking Status: Never smoker Tobacco Type: Smokeless Tobacco (Dip or Chew) Second Hand Exposure: No; Do You Dip or Chew Tobacco: Yes (advised); Hx Alcohol Use: No Hx Substance Use: No Preferred Language: Sammarinese Communication Ability: Effective Visual Impairment: Limited Hearing Ability: Hard of Hearing 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 Beliefs That Will Affect Care: None marital status: Current Living Situation: Spouse current occupational status: employed How many Children do You have: 0 How many Children do You have Comment: able to assist with care as needed Feels Safe at Home: Yes Safety Concerns: Feels Safe At This Time Diet: regular caffeine: Yes (Not very often ) Dental Care, Regularly: Yes Seatbelt Use: never Sunscreen Use: No Do you think of yourself as: straight/heterosexual Assistive Devices: Glasses Allergies Allergies Allergy/AdvReac Type Severity Reaction Status Date / Time homatropine Allergy Intermediate SYRUP-MENTAL Verified 05/11/23 14:08 CONFUSION hydrocodone Allergy Intermediate SYRUP-MENTAL Verified 05/11/23 14:08 CONFUSION Penicillins Allergy Unknown as a child Verified 05/11/23 14:08 Home Meds Home Medications Medication Instructions Recorded Confirmed albuterol sulfate 90 mcg/actuation 2 puffs inhalation 6XD PRN 01/03/21 05/11/23 aerosol inhaler (Ventolin HFA) shortness of breath or wheezing fluticasone propionate 50 1 spray intranasal BID PRN sinus 11/07/21 05/11/23 mcg/actuation nasal congestion spray,suspension (Allergy Relief (fluticasone)) olmesartan 40 mg tablet 40 mg PO QAM 02/20/23 05/11/23 amlodipine 5 mg tablet 10 mg PO QAM 05/08/23 05/11/23 furosemide 20 mg tablet (Lasix) 20 mg PO QAM 05/08/23 05/11/23 tamsulosin 0.4 mg capsule 0.4 mg PO PM 05/08/23 05/11/23 Previous Rx's Medication Instructions Recorded metformin 500 mg tablet See Rx Instructions PO .COMPLEX 08/22/22 #270 tabs metoprolol succinate 50 mg 100 mg (2 x 50 mg) PO QAM #180 tabs 01/31/23 tablet,extended release 24 hr sulfamethoxazole 800 1 tab PO BID 14 days #28 tabs 04/29/23 mg-trimethoprim 160 mg tablet (Bactrim DS) Results & Data (ED) Vital Signs Vital Signs - 24 hr 05/11/23 11:35 05/11/23 11:52 05/11/23 12:30 Temperature 36.9 C Temperature Source Temporal Artery Scan Pulse Rate 94 H 92 H Pulse Rate [Bilateral] 87 Pulse Rhythm Respiratory Rate 22 18 Respiratory Effort / Characteristics Non-Labored Spontaneous Respiratory Depth Normal Respiratory Pattern Regular Blood Pressure 129/82 Blood Pressure [Right Arm] 146/98 H Blood Pressure Mean 97 Blood Pressure Mean [Right Arm] 114 Blood Pressure Position Sitting Pulse Oximetry 95 94 Oxygen Delivery Method Room Air Room Air Sepsis Recent Fever Within 48 Hours No Sepsis New/Unexplained Change in Mental Status N/A Sepsis Action Taken by Nursing No Action Required 05/11/23 12:35 Temperature Temperature Source Pulse Rate 91 H Pulse Rate [Bilateral] Pulse Rhythm Regular Respiratory Rate 20 Respiratory Effort / Characteristics Respiratory Depth Respiratory Pattern Blood Pressure Blood Pressure [Right Arm] Blood Pressure Mean Blood Pressure Mean [Right Arm] Blood Pressure Position Pulse Oximetry 91 Oxygen Delivery Method Room Air Sepsis Recent Fever Within 48 Hours Sepsis New/Unexplained Change in Mental Status Sepsis Action Taken by [facility] Medications Current Medication List: was personally reviewed by me Laboratory Data Attestation: I reviewed the patient's lab results. 05/11/23 12:40 05/11/23 15:30 Lab Results 05/11/23 Range/Units 12:40 WBC 10.03 (4.8-10.8) K/ul RBC 4.36 L (4.70-6.10) M/uL Hgb 13.8 L (14.0-18.0) g/dl Hct 39.5 L (42.0-52.0) % MCV 90.6 (80.0-100.0) fL MCH 31.7 (25.0-34.0) pg MCHC 34.9 (32.0-36.0) g/dL RDW Std Deviation 46.5 H (36.4-46.3) fL RDW Coeff of Beth 13.8 (11.5-14.5) % Plt Count 215 (130-400) K/uL MPV 8.5 L (9.4-12.4) fL Immature Gran % (Auto) 4.2 % Neut % (Auto) 77.3 % Lymph % (Auto) 8.2 % [place] % (Auto) 9.4 % Eos % (Auto) 0.4 % Baso % (Auto) 0.5 % Neut # (Auto) 7.76 H (1.40-6.50) K/uL Lymph # (Auto) 0.82 L (1.20-3.40) K/uL [place] # (Auto) 0.94 H (0.11-0.59) K/uL Eos # (Auto) 0.04 (0.00-0.50) K/uL Baso # (Auto) 0.05 (0.00-0.20) K/uL Immature Gran # (Auto) 0.42 H (0.01-0.20) K/uL Sodium 121 L (136-145) mmol/L Potassium 4.6 (3.5-5.1) mmol/L Chloride 90 L (98-107) mmol/L Carbon Dioxide 21 (21-32) mmol/L Anion Gap 10 (3-11) BUN 16 (6-23) mg/dl Creatinine 1.08 (0.6-1.4) mg/dl Est Cr Clr Drug Dosing 94.9 ml/min Est GFR ( Amer) 87.2 ml/min Est GFR (Non-Af Amer) 75.3 ml/min BUN/Creatinine Ratio 14.8 (10-20) Glucose 134 H (70-99(Fasting)) mg/dl Osmolality 254 L (280-300) mOsm/kg Calcium 8.2 L (8.6-10.3) mg/dl Total Bilirubin 0.8 (0.2-1.0) mg/dl AST 35 (13-39) U/L ALT 69 H (7-52) U/L Alkaline Phosphatase 77 (34-104) U/L Troponin I High Sens 11.7 D (0-20) pg/ml Total Protein 6.2 (6.0-8.3) gm/dl Albumin 3.8 (3.4-5.0) gm/dl Globulin 2.4 L (2.5-4.0) gm/dl Albumin/Globulin Ratio 1.6 (0.9-2) Random Cortisol 23.12 mcg/dl Administered Medications Discontinued Medications Sodium Chloride (Nss) 500 mls @ 999 mls/hr IV .Q31M CHRISTINE Stop: 05/11/23 12:45 Last Infusion: 05/11/23 13:51 Dose: Infused Documented By: Admin: 05/11/23 12:37 Dose: 999 mls/hr Documented By: YRIS Sodium Chloride (Hypertonic Saline 3%) 100 mls @ 600 mls/hr IV .Q10M ONE; Protocol Stop: 05/11/23 17:31 Last Infusion: 05/11/23 18:30 Dose: Infused Documented By: ELLY Co-signed By: HERBERT Admin: 05/11/23 18:06 Dose: 600 mls/hr Documented By: ELLY Co-signed By: HERBERT Ioversol (Optiray 320 125ml) 115 ml IV ONCE ONE Stop: 05/11/23 13:08 Last Admin: 05/11/23 13:08 Dose: 115 ml Documented By: MARCELA Meclizine HCl (Meclizine Hcl 25 Mg Tab) 25 mg PO NOW STA Stop: 05/11/23 12:09 Last Admin: 05/11/23 12:36 Dose: 25 mg Documented By: YRIS Ondansetron HCl (Ondansetron Inj 2 Mg/Ml 2 Ml Vial) 4 mg IV NOW STA Stop: 05/11/23 12:09 Last Admin: 05/11/23 12:36 Dose: 4 mg Documented By: YRIS Imaging Data Radiologist's Impression: Chest X-Ray 05/11/23 12:08 XR chest 1V portable CLINICAL HISTORY: Shortness of breath. COMPARISON STUDY: Chest CT January 03, 2021 chest radiograph May 10, 2023. FINDINGS: Cardiomegaly is again noted. No pneumothorax or pleural effusion is present. There is no consolidation to suggest pneumonia. There is no evidence for pulmonary edema. IMPRESSION: No acute cardiopulmonary findings. Cardiomegaly. ACT 112: Negative or not required by law. Electronically signed by: Jaylon Peguero M.D. 05/11/2023 1:[address] 05/11/23 12:08 CT OF THE HEAD WITHOUT CONTRAST CLINICAL HISTORY: vertigo, gait imbalance COMPARISON STUDY: Head CT and CTA of the head May 08, 2023. TECHNIQUE: Helical axial images of the head were obtained without IV contrast. Automated exposure control was utilized for the study. A dose lowering technique was utilized adhering to the principles of ALARA. FINDINGS: No acute intracranial hemorrhage, midline shift or mass effect is present. White matter hypodensities are unchanged since prior exam. The ventricular system is unremarkable. The basal cisterns are patent. No extra- axial collections are present. There are no findings to suggest acute dural sinus thrombosis or acute territorial infarct. No significant calvarial abnormalities are present. Visualized portions of the sinuses and mastoid air cells are clear. IMPRESSION: 1. No acute intracranial findings. 2. No change in nonspecific white matter hypodensities since head CT of May 08, 2023. These may reflect small vessel disease although are greater than expected for age. ACT 112: Negative or not required by law. Electronically signed by: Jaylon Peguero M.D. 05/11/2023 1:15 PM Head CTA 05/11/23 12:08 CTA ANGIOGRAPHY OF THE HEAD CLINICAL HISTORY: vertigo, nystagmus COMPARISON STUDY: Head CT and CTA of the head May 08, 2023. TECHNIQUE: Helical axial images of the head were obtained following uneventful intravenous administration of 115 cc of Optiray. Sagittal and coronal reconstructions were viewed as well as maximal intensity projections on an independent 3-D workstation. Automated exposure control was utilized for the study. A dose lowering technique was utilized adhering to the principles of ALARA. FINDINGS: Ventricles is unremarkable. Basal cisterns are patent. There are no extra-axial collections. No intracranial hemorrhage was identified on the head CT which will be reported separately. The bilateral M1, M2, A1 and A2 segments are patent. There is no large vessel occlusion. There is no intracranial aneurysm. No stenoses are identified. IMPRESSION: No intracranial aneurysm. No large vessel occlusion. ACT 112: Negative or not required by law. Electronically signed by: Jaylon Peguero M.D. 05/11/2023 1:31 PM Neck CTA 05/11/23 12:08 CT ANGIOGRAPHY OF THE NECK WITH CONTRAST CLINICAL HISTORY: vertigo, nystagmus COMPARISON STUDY: No previous studies for comparison. Technique: CT angiography of the carotid and vertebral arteries was obtained using Optiray and 3D reconstruction on an independent workstation. NASCET criteria was utilized. Automated exposure control was utilized for the study. A dose lowering technique was utilized adhering to the principles of ALARA. CT DOSE: 1291.72 mGy.cm Findings: Left lobe thyroid nodule was previously biopsied on August 19, 2018. This was shown on thyroid ultrasound of August 06, 2018. Visualized portions of the lung apices are unremarkable. There is no cervical spine fracture. There is no cervical lymphadenopathy. Moderate compression fracture is old. The bilateral common carotid, cervical internal carotid and vertebral arteries are patent. There is no stenosis or dissection within these vessels. There is no aneurysm within the neck. IMPRESSION: Unremarkable CTA of the neck. ACT 112: Negative or not required by law. Electronically signed by: Jyalon Peguero M.D. 05/11/2023 1:26 PM Discharge Plan Visit Data Chief Complaint: Vertigo Stated Complaint: THIRD VISIT THIS WEEK FEEKS LIKE VERTIGO ED Provider: Ramez Thao Discharge Problem: Hyponatremia, Vertigo Patient Disposition: Admitted As Inpatient Discharge Instructions Interventions: ED Discharge Assessment Last Done: 05/11/23 15:13
[2023-05-11] MEDS ORDERED: ONDANSETRON INJ 2 MG/ML 2 ML VIAL IV STA (12:08)
[2023-05-11] MEDS ORDERED: MECLIZINE HCL 25 MG TAB PO STA (12:08)
[2023-05-11] MEDS ORDERED: SODIUM CHLORIDE 0.9% 500 ML IV SCH (12:15)
[2023-05-11 13:01] LABS: Basophils # (auto) 0.05 K/uL (0.00-0.20); Basophils % (auto) 0.5 %; Eosinophils # (auto) 0.04 K/uL (0.00-0.50); Eosinophils % (auto) 0.4 %; Hematocrit (blood only) 39.5 % (42.0-52.0); Hemoglobin 13.8 g/dl (14.0-18.0); Immature Granulocytes # (auto) 0.42 K/uL (0.01-0.20); Immature Granulocytes % (auto) 4.2 %; Lymphocytes # (auto) 0.82 K/uL (1.20-3.40); Lymphocytes % (auto) 8.2 %; Mean Corpuscular Hemoglobin 31.7 pg (25.0-34.0); Mean Corpuscular Hgb Conc 34.9 g/dL (32.0-36.0); Mean Corpuscular Volume 90.6 fL (80.0-100.0); Mean Platelet Volume 8.5 fL (9.4-12.4); Monocytes # (auto) 0.94 K/uL (0.11-0.59); Monocytes % (auto) 9.4 %; Neutrophils # (auto) 7.76 K/uL (1.40-6.50); Neutrophils % (auto) 77.3 %; Platelet Count 215 K/uL (130-400); RDW Coefficient of Variation 13.8 % (11.5-14.5); RDW Standard Deviation 46.5 fL (36.4-46.3); Red Blood Count 4.36 M/uL (4.70-6.10); White Blood Count 10.03 K/ul (4.8-10.8)
[2023-05-11] MEDS ORDERED: OPTIRAY 320 125ml IV ONE (13:07)
[2023-05-11 13:15] LABS: Albumin Globulin Ratio 1.6 (0.9-2); Albumin Level 3.8 gm/dl (3.4-5.0); BUN Creatinine Ratio 14.8 (10-20); Bilirubin,Total 0.8 mg/dl (0.2-1.0); Calcium 8.2 mg/dl (8.6-10.3); Creatinine Clr Calc Pharmacy 94.9 ml/min; Est GFR (African American) 87.2 ml/min; Est GFR (Non-African American) 75.3 ml/min; Globulin 2.4 gm/dl (2.5-4.0); Potassium 4.6 mmol/L (3.5-5.1); Total Protein 6.2 gm/dl (6.0-8.3)
--- NOTE | 2023-05-11 13:17 | CT Scan Report ---
CT OF THE HEAD WITHOUT CONTRAST CLINICAL HISTORY: vertigo, gait imbalance COMPARISON STUDY: Head CT and CTA of the head May 08, 2023. TECHNIQUE: Helical axial images of the head were obtained without IV contrast. Automated exposure con trol was utilized for the study. A dose lowering technique was utilized adhering to the principles o f ALARA. FINDINGS: No acute intracranial hemorrhage, midline shift or mass effect is present. White matter hyp odensities are unchanged since prior exam. The ventricular system is unremarkable. The basal cisterns are patent. No extra-axial collections are present. There are no findings to suggest acute dural sin us thrombosis or acute territorial infarct. No significant calvarial abnormalities are present. Visua lized portions of the sinuses and mastoid air cells are clear. IMPRESSION: 1. No acute intracranial findings. 2. No change in nonspecific white matter hypodensities since head CT of May 08, 2023. These may reflect small vessel disease although are greater than expected for age. ACT 112: Negative or not required by law. Electronically signed by: Jaylon Peguero M.D. 05/11/2023 1:15 PM
--- NOTE | 2023-05-11 13:17 | XRay Report ---
XR chest 1V portable CLINICAL HISTORY: Shortness of breath. COMPARISON STUDY: Chest CT January 03, 2021 chest radiograph May 10, 2023. FINDINGS: Cardiomegaly is again noted. No pneumothorax or pleural effusion is present. There is no co nsolidation to suggest pneumonia. There is no evidence for pulmonary edema. IMPRESSION: No acute cardiopulmonary findings. Cardiomegaly. ACT 112: Negative or not required by law. Electronically signed by: Jaylon Peguero M.D. 05/11/2023 1:16 PM
[2023-05-11 13:26] LABS: Troponin I High Sensitivity 11.7 pg/ml (0-20)
--- NOTE | 2023-05-11 13:28 | CT Scan Report ---
CT ANGIOGRAPHY OF THE NECK WITH CONTRAST CLINICAL HISTORY: vertigo, nystagmus COMPARISON STUDY: No previous studies for comparison. Technique: CT angiography of the carotid and vertebral arteries was obtained using Optiray and 3D rec onstruction on an independent workstation. NASCET criteria was utilized. Automated exposure control was utilized for the study. A dose lowering technique was utilized adhering to the principles of ALA RA. CT DOSE: 1291.72 mGy.cm Findings: Left lobe thyroid nodule was previously biopsied on August 19, 2018. This was shown on thyro id ultrasound of August 06, 2018. Visualized portions of the lung apices are unremarkable. There is no cervical spine fracture. There is no cervical lymphadenopathy. Moderate compression fracture is o ld. The bilateral common carotid, cervical internal carotid and vertebral arteries are patent. There is no stenosis or dissection within these vessels. There is no aneurysm within the neck. IMPRESSION: Unremarkable CTA of the neck. ACT 112: Negative or not required by law. Electronically signed by: Jaylon Peguero M.D. 05/11/2023 1:26 PM
--- NOTE | 2023-05-11 13:34 | CT Scan Report ---
CTA ANGIOGRAPHY OF THE HEAD CLINICAL HISTORY: vertigo, nystagmus COMPARISON STUDY: Head CT and CTA of the head May 08, 2023. TECHNIQUE: Helical axial images of the head were obtained following uneventful intravenous administr ation of 115 cc of Optiray. Sagittal and coronal reconstructions were viewed as well as maximal inten sity projections on an independent 3-D workstation. Automated exposure control was utilized for the study. A dose lowering technique was utilized adhering to the principles of ALARA. FINDINGS: Ventricles is unremarkable. Basal cisterns are patent. There are no extra-axial collections . No intracranial hemorrhage was identified on the head CT which will be reported separately. The rahat ateral M1, M2, A1 and A2 segments are patent. There is no large vessel occlusion. There is no intracr anial aneurysm. No stenoses are identified. IMPRESSION: No intracranial aneurysm. No large vessel occlusion. ACT 112: Negative or not required by law. Electronically signed by: Jaylon Peguero M.D. 05/11/2023 1:31 PM
--- NOTE | 2023-05-11 14:06 | History & Physical Report ---
Date of Service May 11, 2023 Assessment & Plan (1) Acute hyponatremia: Plan: Suspect most likely secondary to recent Bactrim use since this was started 04/29 Urine osm > 300 and sodium 83 - suspect exacerbated by lasix and olmesartan although since these are not new unlikely to be cause of acute drop SIADH not ruled out Sudden reduction from 127/128 yesterday to 121 today. Will repeat Na level with cortisol and TSH to assess alternative cause following 500ml NSS given in the ER NPO until sodium starting to increase Hypertonic saline as needed to aim increase 6-8 in the first 24 hours BMP q4h first 24 hours then q6h (2) Acute constipation: Plan: Hold off laxatives until sodium starting to increase (3) Dizziness: Plan: With nystagmus on exam Suspect due to hyponatremia as above If not resolving with sodium increase consider MRI brain (4) Diabetes type 2, controlled: Plan: HbA1C 6.7 Novolog: --Goal BSG Range: Low 110 mg/dL, High 140 mg/dL --Correction Factor: 45 mg/dL/unit --Carbohydrate ratio = 15 g/unit --BSGs ACHS if eating, q6h if npo Add basal pending use of Novolog (5) Hypertension: Plan: Hold olmesartan, Lasix Continue amlodipine Plan VTE Prophylaxis - Lovenox 40mg SQ daily Diet - NPO pending improvement in sodium Disposition - admit to med/tele Admission and Anticipated Discharge Date Admission Date: May 11, 2023 History of Present Illness Chief Complaint: Vertigo Primary Care Provider: Alejo Bah DO Marlon Lua is a 57 year old male who presents to the ER with dizziness. He reports waking up this morning with dizziness. He reports this is lightheadedness, room spinning and difficulty with his balance. Worse while lying down. Never had similar sensation previously. Associated nausea and vomiting this morning with limbs jerking. He denies any alcohol intake. No change in water intake although he does not he drinks a lot of liquids with apple cider. He takes Lasix but not recent change in dosing. Only new medication is Bactrim which he started for right knee ulcer with the wound care clinic. He denies a one sided weakness, sensory loss, change in speech or hearing. No chest pain, shortness of breath, fever, chills or infection symptoms of respiratory or urinary systems. He denies abdominal pain but reports distension and no bowel movements for the last 4 days. Allergies Allergy/AdvReac Type Severity Reaction Status Date / Time homatropine Allergy Intermediate SYRUP-MENTAL Verified 05/11/23 14:08 CONFUSION hydrocodone Allergy Intermediate SYRUP-MENTAL Verified 05/11/23 14:08 CONFUSION Penicillins Allergy Unknown as a child Verified 05/11/23 14:08 Home Medications Medication Instructions Recorded Confirmed Type albuterol sulfate 90 mcg/actuation 2 puffs inhalation 6XD PRN 01/03/21 05/11/23 History aerosol inhaler (Ventolin HFA) shortness of breath or wheezing fluticasone propionate 50 1 spray intranasal BID PRN sinus 11/07/21 05/11/23 History mcg/actuation nasal congestion spray,suspension (Allergy Relief (fluticasone)) metformin 500 mg tablet See Rx Instructions PO .COMPLEX 08/22/22 05/11/23 Rx #270 tabs metoprolol succinate 50 mg 100 mg (2 x 50 mg) PO QAM #180 tabs 01/31/23 05/11/23 Rx tablet,extended release 24 hr olmesartan 40 mg tablet 40 mg PO QAM 02/20/23 05/11/23 History sulfamethoxazole 800 1 tab PO BID 14 days #28 tabs 04/29/23 05/11/23 Rx mg-trimethoprim 160 mg tablet (Bactrim DS) amlodipine 5 mg tablet 10 mg PO QAM 05/08/23 05/11/23 History furosemide 20 mg tablet (Lasix) 20 mg PO QAM 05/08/23 05/11/23 History tamsulosin 0.4 mg capsule 0.4 mg PO PM 05/08/23 05/11/23 History Past Med/Surg History Medical History History of colon polyps Chronic wound RLE. Follows with wound clinic. Cellulitis Rt knee -- reason for abx (prescribed by [facility]) Urinary frequency History of COVID-19 asymptomatic. unsure when, sometime in 2020. Pulmonary embolism ~05/2021. Treated with [facility]. Placed on Eliquis (no longer on Eliquis) Chronic venous insufficiency following with Dr. Fields. Diabetes type 2, controlled Right leg DVT pt denies DVT -- states it was superficial clot of right leg about a year ago (~2020) Compressed vertebrae History of fractured rib Depressed skull fracture A YOUNG CHILD History of blood clots SUPERFICIAL CLOT IN LEFT LEG (~2015) Hypertension Varicose vein Surgical History History of colonoscopy History of prior ablation treatment hx right GSV History of repair of rotator cuff (~10/2020) Right H/O vein stripping Hx of removal of cyst FROM BACK History of herniorrhaphy UMBILICAL HERNIA REPAIR History of tonsillectomy Family History Father Myocardial infarction Other Family history non-contributory Denies family history of Ovarian cancer Prostate cancer Breast cancer Lung cancer Colorectal cancer Social History Smoking Status: Never smoker Tobacco Type: Smokeless Tobacco (Dip or Chew) Second Hand Exposure: No; Do You Dip or Chew Tobacco: Yes (advised); Hx Alcohol Use: No Hx Substance Use: No Preferred Language: Greenlandic Communication Ability: Effective Visual Impairment: Limited Hearing Ability: Hard of Hearing Player Manager Required: No Beliefs That Will Affect Care: None marital status: Current Living Situation: Spouse current occupational status: employed How many Children do You have: 0 How many Children do You have Comment: able to assist with care as needed Feels Safe at Home: Yes Safety Concerns: Feels Safe At This Time Diet: regular caffeine: Yes (Not very often ) Dental Care, Regularly: Yes Seatbelt Use: never Sunscreen Use: No Do you think of yourself as: straight/heterosexual Assistive Devices: Glasses Review of Systems Review of Systems: All systems reviewed & are unremarkable except as noted in HPI & below Physical Exam Constitutional: WD/WN, vitals as above Eyes: PERRL, EOM intact bilaterally (without diplopia) and + nystagmus (mainly on rightward gaze, exacerbated on lying flat) ENMT: external ear and nose normal, oropharynx normal Neck: trachea midline, no thyromegaly Respiratory: + labored breathing and + uses accessory muscles Cardiovascular: RRR, no murmur, no edema Gastrointestinal (Abdomen): Inspection/Auscultation: + abdomen distended and + hypoactive bowel sounds Percussion/Palpation: abdomen soft; abdomen nontender, no guarding and abdomen not rigid Musculoskeletal: no cyanosis or clubbing, extremities motor strength 5/5 Skin: no rashes, warm and dry Neurologic: moves all extremities and awake; no focal motor deficits and not confused Speech / Cognition: normal speech Motor/Sensory: + tremor (action bilateral); no pronator drift Cranial Nerves: PERRL, EOM intact bilaterally, normal facial strength, tongue midline, able to rotate head bilaterally, able to elevate shoulders bilaterally, no nystagmus and symmetric palate elevation Psychiatric: A+Ox3, euthymic affect Results & Data Results & Data Vital Signs (Past 12 Hours) Vital Signs Temp Pulse Pulse Resp BP BP Pulse Ox 05/11/23 12:35 91 H 20 91 05/11/23 12:30 87 18 146/98 H 94 05/11/23 11:52 92 H 05/11/23 11:35 36.9 C 94 H 22 129/82 95 O2 Del Method 05/11/23 12:35 Room Air 05/11/23 12:30 Room Air 05/11/23 11:52 05/11/23 11:35 Room Air Laboratory Results Abnormal lab results 05/11/23 Range/Units 12:40 RBC 4.36 L (4.70-6.10) M/uL Hgb 13.8 L (14.0-18.0) g/dl Hct 39.5 L (42.0-52.0) % RDW Std Deviation 46.5 H (36.4-46.3) fL MPV 8.5 L (9.4-12.4) fL Neut # (Auto) 7.76 H (1.40-6.50) K/uL Lymph # (Auto) 0.82 L (1.20-3.40) K/uL Hamlin # (Auto) 0.94 H (0.11-0.59) K/uL Immature Gran # (Auto) 0.42 H (0.01-0.20) K/uL Sodium 121 L (136-145) mmol/L Chloride 90 L (98-107) mmol/L Glucose 134 H (70-99(Fasting)) mg/dl Calcium 8.2 L (8.6-10.3) mg/dl ALT 69 H (7-52) U/L Globulin 2.4 L (2.5-4.0) gm/dl Diagnostic Findings CT OF THE HEAD WITHOUT CONTRAST CLINICAL HISTORY: vertigo, gait imbalance COMPARISON STUDY: Head CT and CTA of the head May 08, 2023. TECHNIQUE: Helical axial images of the head were obtained without IV contrast. Automated exposure control was utilized for the study. A dose lowering technique was utilized adhering to the principles of ALARA. FINDINGS: No acute intracranial hemorrhage, midline shift or mass effect is present. White matter hypodensities are unchanged since prior exam. The ventricular system is unremarkable. The basal cisterns are patent. No extra- axial collections are present. There are no findings to suggest acute dural sinus thrombosis or acute territorial infarct. No significant calvarial abnormalities are present. Visualized portions of the sinuses and mastoid air cells are clear. IMPRESSION: 1. No acute intracranial findings. 2. No change in nonspecific white matter hypodensities since head CT of May 08, 2023. These may reflect small vessel disease although are greater than expected for age. CTA ANGIOGRAPHY OF THE HEAD CLINICAL HISTORY: vertigo, nystagmus COMPARISON STUDY: Head CT and CTA of the head May 08, 2023. TECHNIQUE: Helical axial images of the head were obtained following uneventful intravenous administration of 115 cc of Optiray. Sagittal and coronal reconstructions were viewed as well as maximal intensity projections on an independent 3-D workstation. Automated exposure control was utilized for the study. A dose lowering technique was utilized adhering to the principles of ALARA. FINDINGS: Ventricles is unremarkable. Basal cisterns are patent. There are no ex tra-axial collections. No intracranial hemorrhage was identified on the head CT which will be reported separately. The bilateral M1, M2, A1 and A2 segments are patent. There is no large vessel occlusion. There is no intracranial aneurysm. No stenoses are identified. IMPRESSION: No intracranial aneurysm. No large vessel occlusion. CT ANGIOGRAPHY OF THE NECK WITH CONTRAST CLINICAL HISTORY: vertigo, nystagmus COMPARISON STUDY: No previous studies for comparison. Technique: CT angiography of the carotid and vertebral arteries was obtained using Optiray and 3D reconstruction on an independent workstation. NASCET criteria was utilized. Automated exposure control was utilized for the study. A dose lowering technique was utilized adhering to the principles of ALARA. CT DOSE: 1291.72 mGy.cm Findings: Left lobe thyroid nodule was previously biopsied on August 19, 2018. This was shown on thyroid ultrasound of August 06, 2018. Visualized portions of the lung apices are unremarkable. There is no cervical spine fracture. There is no cervical lymphadenopathy. Moderate compression fracture is old. The bilateral common carotid, cervical internal carotid and vertebral arteries are patent. There is no stenosis or dissection within these vessels. There is no aneurysm within the neck. IMPRESSION: Unremarkable CTA of the neck. XR chest 1V portable CLINICAL HISTORY: Shortness of breath. COMPARISON STUDY: Chest CT January 03, 2021 chest radiograph May 10, 2023. FINDINGS: Cardiomegaly is again noted. No pneumothorax or pleural effusion is pr esent. There is no consolidation to suggest pneumonia. There is no evidence for pulmonary edema. IMPRESSION: No acute cardiopulmonary findings. Cardiomegaly. Medications Administered ER Medications Given: Normal saline 500ml bolus Meclizine 25mg PO Ondansetron 4mg IV ECG Rate (beats per minute): 88 Rhythm: normal sinus Findings: + LAFB and + RBBB (incomplete) Comparison ECG Date: from (May 10, 2023) Change: no significant change Code Status & VTE Plan Code Status Full VTE Prophylaxis Plan VTE Prophylaxis will be ordered: Yes PG Care Time/CCT Total # of Minutes Spent Total Time Spent with Patient: Total time spent is greater than 50% in coordination of care (as documented) at patient's floor/unit and/or counseling patient: Coding Level of Care Code 77979 INT INP/OBS CARE 3/75MIN Diagnoses Acute hyponatremia E87.1 Acute constipation K59.00 Dizziness R42 Diabetes type 2, controlled E11.9 Primary hypertension I10 Hypertension type: primary hypertension (5) Hypertension Hypertension type: primary hypertension Qualified Code(s): I10 - Essential (primary) hypertension
[2023-05-11 14:40] LABS: Urine Potassium 25.2 mmol/L
[2023-05-11 16:03] LABS: Creatinine Clr Calc Pharmacy 95.8 ml/min; Est GFR (African American) 88.2 ml/min; Est GFR (Non-African American) 76.1 ml/min; Potassium 4.7 mmol/L (3.5-5.1)
[2023-05-11 16:19] LABS: Thyroid Stimulating Hormone 0.938 uIu/ml (0.300-4.500)
[2023-05-11] MEDS ORDERED: SODIUM CHLORIDE 3 % 100 ML IV ONE (17:22)
[2023-05-11] MEDS ORDERED: STAT IV/IM STA ×2 (17:22→21:07)
[2023-05-11] MEDS ORDERED: DEXTROSE 50% 50 ML SYRINGE IV PRN (18:54)
[2023-05-11] MEDS ORDERED: GLUCOSE 40% GEL 15 GM TUBE PO PRN (18:54)
[2023-05-11] MEDS ORDERED: GLUCAGON FOR INJ 1 MG VIAL SQ PRN (18:54)
[2023-05-11] MEDS ORDERED: CARBOHYDRATES FOR HYPOGLYCEMIA PO PRN (18:54)
[2023-05-11] MEDS ORDERED: GLUCOSE 10 TAB/TUBE PO PRN (18:54)
[2023-05-11 20:41] LABS: Potassium 4.8 mmol/L (3.5-5.1)
[2023-05-11 20:47] LABS: BUN Creatinine Ratio 14.1 (10-20); Creatinine Clr Calc Pharmacy 103.5 ml/min; Est GFR (African American) 96.9 ml/min; Est GFR (Non-African American) 83.6 ml/min
[2023-05-11] MEDS ORDERED: SODIUM CHLORIDE 3 % 150 ML IV ONE (21:07)
[2023-05-11] MEDS: ENOXAPARIN INJ 40 MG/0.4 ML SYR SQ SCH (22:00)
[2023-05-11] MEDS: INSULIN ASPART PER UNIT CHARGE SC SCH (22:01)
[2023-05-11] MEDS: TAMSULOSIN HCL 0.4 MG CAP PO SCH (22:02)
[2023-05-12 01:06] LABS: BUN Creatinine Ratio 13.5 (10-20); Calcium 7.7 mg/dl (8.6-10.3); Creatinine Clr Calc Pharmacy 106.7 ml/min; Est GFR (African American) 100.6 ml/min; Est GFR (Non-African American) 86.8 ml/min; Potassium 4.6 mmol/L (3.5-5.1)
[2023-05-12] MEDS: METOPROLOL SUCC 50MG EXT REL TAB PO SCH (08:22)
[2023-05-12] MEDS: POLYETHYLENE (MIRALAX) 17 GM PACK PO SCH ×3 (08:26→21:21)
[2023-05-12 08:45] LABS: Basophils # (auto) 0.04 K/uL (0.00-0.20); Basophils % (auto) 0.4 %; Eosinophils # (auto) 0.05 K/uL (0.00-0.50); Eosinophils % (auto) 0.6 %; Hematocrit (blood only) 37.7 % (42.0-52.0); Hemoglobin 12.8 g/dl (14.0-18.0); Immature Granulocytes # (auto) 0.38 K/uL (0.01-0.20); Immature Granulocytes % (auto) 4.2 %; Lymphocytes # (auto) 0.78 K/uL (1.20-3.40); Lymphocytes % (auto) 8.7 %; Mean Corpuscular Hemoglobin 31.2 pg (25.0-34.0); Mean Platelet Volume 8.5 fL (9.4-12.4); Monocytes # (auto) 0.81 K/uL (0.11-0.59); Neutrophils # (auto) 6.91 K/uL (1.40-6.50); Neutrophils % (auto) 77.1 %; Platelet Count 222 K/uL (130-400); RDW Coefficient of Variation 13.8 % (11.5-14.5); RDW Standard Deviation 46.8 fL (36.4-46.3); White Blood Count 8.97 K/ul (4.8-10.8)
[2023-05-12] MEDS ORDERED: amLODIPine BESYLATE 5 MG TAB PO SCH (09:00)
[2023-05-12] MEDS: INSULIN ASPART PER UNIT CHARGE SC SCH ×4 (10:08→21:22)
[2023-05-12 10:26] LABS: Potassium 4.4 mmol/L (3.5-5.1)
--- NOTE | 2023-05-12 12:40 | Hospitalist Progress Note ---
Date of Service May 12, 2023 Assessment & Plan (1) Acute hyponatremia: Plan: This appears to be due to polydipsia. Hyponatremia noted. Fluid restriction underway. Will discontinue Lasix indefinitely since it is this causing xerostomia leading to polydipsia. All other home medications reviewed. Olmesartan will be restarted at discharge. Serial labs (2) Acute constipation: Plan: Colace added to MiraLAX. No evidence of bowel obstruction (3) Dizziness: Plan: He may have an element of labyrinthitis. Minimal symptoms at this time. Will follow (4) Diabetes type 2, controlled: Plan: HbA1C 6.7. ADA diet. Sliding scale coverage as needed (5) Hypertension: Plan: He takes amlodipine, olmesartan, and Lasix at home. The amlodipine is probable causing the lower extremity edema that led to the Lasix usage which is causing dry mouth which led to polydipsia which led to hypoosmolar hyponatremia. Lasix and amlodipine have been discontinued indefinitely. Olmesartan can be restarted at discharge. Plan Hopefully home tomorrowMay 13 Admission and Anticipated Discharge Date Admission Date: May 11, 2023 Subjective Alert and oriented. No distress. The patient states he drinks at least a gallon of water daily because of the dry mouth. Polydipsia is the most likely cause of his hyponatremia. I highly doubt the Bactrim had anything to do with it. I feel SIADH is unlikely. He is encouraged to chew gum to stimulate saliva to deal with the xerostomia. Lasix will be discontinued indefinitely. Sodium is improved to 125. Colace added to MiraLAX for the constipation. Will request physical therapy assessment. Hopefully he can go home tomorrowMay 13 Review of Systems 2 Review of Systems: Constitutional-no fever or chills ENT-no blurred vision, no double vision, no epistaxis, no sore throat. He complains of a constant dry mouth Respiratory-no cough, no wheezing, no shortness of breath Cardiac-no palpitations, no chest pain, no syncope GI-no nausea, vomiting, diarrhea, melena, hematochezia. He is constipated -no urinary retention, no urinary incontinence, no dysuria, no hematuria Musculoskeletal-no joint pain, no muscle tenderness Skin-no bruising, no rashes, no pruritus Neuro-no isolated weakness, no paresthesia, no weakness Psych-no depression, no anxiety Physical Exam 2 Physical Exam: General-alert and oriented x3, no fevers, no chills HEENT-head atraumatic and normocephalic, pupils equal and reactive to light, extraocular muscles intact Neck-no lymphadenopathy or thyromegaly, trachea midline Chest-clear to auscultation percussion. No rales wheezing or rhonchi Cardiac-regular rate and rhythm, normal S1 and S2, no murmurs Abdomen-normal bowel sounds, distended, nontender, no hepatosplenomegaly. No ascites Extremities-no cyanosis, clubbing, or edema Neuro-cranial nerves II through XII intact, motor and sensory function within normal limits, strength symmetrical, no focal deficits Psych-normal affect, normal mood Results & Data Results & Data Vital Signs (Past 12 Hours) Vital Signs Temp Pulse Pulse Resp BP BP Pulse Ox 05/12/23 11:28 37.3 C 79 14 128/82 95 05/12/23 08:29 05/12/23 07:58 37.1 C 85 16 135/83 95 05/12/23 07:19 88 05/12/23 03:05 36.5 C 90 18 156/73 H 93 O2 Del Method 05/12/23 11:28 Room Air 05/12/23 08:29 Room Air 05/12/23 07:58 Room Air 05/12/23 07:19 05/12/23 03:05 Room Air Laboratory Results 05/12/23 08:06 05/12/23 09:42 PG Care Time/CCT Total # of Minutes Spent Total Time Spent with Patient: Total time spent is greater than 50% in coordination of care (as documented) at patient's floor/unit and/or counseling patient: Coding Level of Care Code 77703 SUB INP/OBS CARE 3/50MIN Diagnoses Acute hyponatremia E87.1 Acute constipation K59.00 Dizziness R42 Diabetes type 2, controlled E11.9 Primary hypertension I10 Hypertension type: primary hypertension (5) Hypertension Hypertension type: primary hypertension Qualified Code(s): I10 - Essential (primary) hypertension
--- NOTE | 2023-05-12 13:05 | Electrocardiogram Report ---
Test Reason : Blood Pressure : / mmHG Vent. Rate : 088 BPM Atrial Rate : 088 BPM P-R Int : 154 ms QRS Dur : 100 ms QT Int : 360 ms P-R-T Axes : 040 -48 040 degrees QTc Int : 435 ms Normal sinus rhythm Incomplete right bundle branch block Left anterior fascicular block Minimal voltage criteria for LVH, may be normal variant ( R in aVL ) Abnormal ECG When compared with ECG of 10-MAY-2023 11:07, No significant change was found Confirmed by He Swanson ([id number]) on 05/12/2023 1:04:44 PM Referred By: REFERRED SELF Confirmed By:He Swanson
[2023-05-12] MEDS: DOCUSATE SODIUM 100 MG CAP PO SCH ×2 (13:08→21:20)
[2023-05-12] MEDS: TAMSULOSIN HCL 0.4 MG CAP PO SCH (21:21)
[2023-05-12] MEDS: ENOXAPARIN INJ 40 MG/0.4 ML SYR SQ SCH (21:22)
[2023-05-13 07:27] LABS: BUN Creatinine Ratio 23.6 (10-20); Calcium 8.3 mg/dl (8.6-10.3); Creatinine Clr Calc Pharmacy 108.4 ml/min; Est GFR (African American) 109.2 ml/min; Est GFR (Non-African American) 94.3 ml/min; Potassium 4.3 mmol/L (3.5-5.1)
[2023-05-13] MEDS: POLYETHYLENE (MIRALAX) 17 GM PACK PO SCH (08:30)
[2023-05-13] MEDS: DOCUSATE SODIUM 100 MG CAP PO SCH (09:01)
[2023-05-13] MEDS: METOPROLOL SUCC 50MG EXT REL TAB PO SCH (09:01)
[2023-05-13] MEDS: INSULIN ASPART PER UNIT CHARGE SC SCH ×2 (09:10→13:29)
--- NOTE | 2023-05-13 12:30 | Discharge Summary ---
Date of Service May 13, 2023 Admission HPI Per Admitting Provider Marlon Lua is a 57 year old male who presents to the ER with dizziness. He reports waking up this morning with dizziness. He reports this is lightheadedness, room spinning and difficulty with his balance. Worse while lying down. Never had similar sensation previously. Associated nausea and vomiting this morning with limbs jerking. He denies any alcohol intake. No change in water intake although he does not he drinks a lot of liquids with apple cider. He takes Lasix but not recent change in dosing. Only new medication is Bactrim which he started for right knee ulcer with the wound care clinic. He denies a one sided weakness, sensory loss, change in speech or hearing. No chest pain, shortness of breath, fever, chills or infection symptoms of respiratory or urinary systems. He denies abdominal pain but reports distension and no bowel movements for the last 4 days. Principal Diagnosis Hypoosmolar hyponatremia due to polydipsia, constipation Discharge Exam General-alert and oriented x3, no fevers, no chills HEENT-head atraumatic and normocephalic, pupils equal and reactive to light, extraocular muscles intact Neck-no lymphadenopathy or thyromegaly, trachea midline Chest-clear to auscultation percussion. No rales wheezing or rhonchi Cardiac-regular rate and rhythm, normal S1 and S2, no murmurs Abdomen-normal bowel sounds, distended, nontender, no hepatosplenomegaly. No ascites Extremities-no cyanosis, clubbing, or edema Neuro-cranial nerves II through XII intact, motor and sensory function within normal limits, strength symmetrical, no focal deficits Psych-normal affect, normal mood Discharge Data Allergies Allergy/AdvReac Type Severity Reaction Status Date / Time homatropine Allergy Intermediate SYRUP-MENTAL Verified 05/11/23 14:08 CONFUSION hydrocodone Allergy Intermediate SYRUP-MENTAL Verified 05/11/23 14:08 CONFUSION Penicillins Allergy Unknown as a child Verified 05/11/23 14:08 Consultations 05/11/23 13:41 ED Decision to Admit Stat Ordered Studies 05/11/23 12:08 CT angio head w con Stat CT angio neck with con Stat CT head/brain wo con Stat Hospital Course (1) Acute hyponatremia: This appears to be due to polydipsia. Hyponatremia has improved to 131. Treated while hospitalized with fluid restriction. Will discontinue Lasix indefinitely since it is causing xerostomia leading to polydipsia. All other home medications reviewed. Olmesartan will be restarted at discharge. Serial labs (2) Acute constipation: Colace added to MiraLAX. No evidence of bowel obstruction (3) Dizziness: He may have an element of labyrinthitis. Minimal symptoms at this time. Will follow (4) Diabetes type 2, controlled: HbA1C 6.7. ADA diet. Sliding scale coverage as needed (5) Hypertension: He takes amlodipine, olmesartan, and Lasix at home. The amlodipine is probable causing the lower extremity edema that led to the Lasix usage which is causing dry mouth which led to polydipsia which led to hypoosmolar hyponatremia. Lasix and amlodipine have been discontinued indefinitely. Olmesartan can be restarted at discharge. Plan Home todayMay 13 Total Time Total Time Spent Total Time Spent (In Minutes): 40 minutes Discharge Plan Discharge Items Patient Disposition: Home - Self-Care Reason For Visit: HYPONATREMIA Discharge Diagnosis: Polydipsia causing hypoosmolar hyponatremia, constipation Activity: Resume your previous activity Non-emergency contact: Primary Care Provider Call non-emergency contact if: you have any medication questions and your symptoms worsen Follow-up/Referrals: Alejo Bah DO [Primary Care Provider] - Diet: Carb Consistent or DM2 Addtl Attending Provider Instructions: Lasix and amlodipine have been discontinued. Chew gum to stimulate saliva to help with the dry mouth. Avoid drinking excessive water Pending Studies at Discharge: No Stand-Alone Forms: My [facility] [employer], Smoking Cessation Medications and DC Order Prescriptions: New polyethylene glycol 3350 [Gavilax] 17 gram powder in packet 17 g PO DAILY 4 Days Qty: 0 0RF docusate sodium 100 mg Capsule 100 mg PO BID Qty: 0 0RF Continued metformin 500 mg tablet See Rx Instructions PO .COMPLEX Qty: 270 3RF Rx Instructions: Take 500mg every AM, 1000mg every PM orally; metoprolol succinate 50 mg tablet extended release 24 hr 100 mg PO QAM Qty: 180 3RF sulfamethoxazole-trimethoprim [Bactrim DS] 800-160 mg tablet 1 tab PO BID 14 Days Qty: 28 0RF Rx Instructions: Start Date 04/29/23 - End Date 05/13/23 fluticasone propionate [Allergy Relief (fluticasone)] 50 mcg/actuation spray,suspension 1 spray intranasal BID PRN (Reason: sinus congestion) Rx Instructions: administer into each nostril tamsulosin 0.4 mg capsule 0.4 mg PO PM Rx Instructions: 0.4 mg orally every evening; albuterol sulfate [Ventolin HFA] 90 mcg/actuation HFA aerosol inhaler 2 puffs INH 6XD PRN (Reason: shortness of breath or wheezing) olmesartan 40 mg tablet 40 mg PO QAM Discontinued furosemide [Lasix] 20 mg tablet 20 mg PO QAM amlodipine 5 mg tablet 10 mg PO QAM Discharge Orders: Discharge Order (Routine); Ordered 05/13/23 Ordered By: Getachew Burger/Other Patient Handouts: High Blood Sugar (Hyperglycemia), Managing Type 2 Diabetes Admission Data Admit Date/Time: 05/11/23 13:55 Attending Provider: Getachew Salazar Admit Provider: Joe Cruz Primary Care Provider: Alejo Bah Other Providers: Joe Cruz Coding Level of Care Code 30854 INP/OBS DISCH >30 MIN Diagnoses Acute hyponatremia E87.1 Acute constipation K59.00 Dizziness R42 Diabetes type 2, controlled E11.9 Primary hypertension I10 Hypertension type: primary hypertension
== END 2023-05-13 14:46 | disposition home or self-care (01) | DRG 641 ==
LOC: ED 11:24 → EDINP 13:55 → SUATTDRO 13:55 → 2N 15:13